=== PATIENT | female | born 1935 | race Caucasian/White ===

== ENCOUNTER 2017-02-25 01:50 | Emergency (ER) | payer OTHER ==
[~2017-02-25] VITALS: Ht 170.2 cm; Wt 101.0 kg
[2017-02-25 01:53] VITALS: TEMP 36.7; Ht 170.2 cm; Wt 101.0 kg
--- NOTE | 2017-02-25 02:28 | EMERGENCY ROOM VISIT NOTE ---
History Report prepared by Diego: Hemanth Herrera Under the Supervision of: Dr. Dusty Jones M.D. First contact with patient: 01:57 Chief Complaint: NEURO SYMPTOMS Stated Complaint: TINGLING DOWN LEFT ARM Nursing Triage Summary: Pt reports tingling sensation from left elbow down the arm to fingers. Onging for 3 weeks. Pt reports it has been happening more frequently now. Pt reports also having nausea tonight. Pt reports she does have pacemaker, denies any chest pain or complaints History of Present Illness The patient is a 81 year old female who presents to the Emergency Room with complaints of left arm tingling that started three weeks ago intermittently, though now it is constant. She states that the tingling goes from her elbow to her fingertips. The patient denies any rashes. She states that she has a pacemaker, though she has never had a heart attack. She states that she had a stress test in the past year, and she states that she did well. She has not had a heart catheterization. Source of History: patient Onset: three weeks ago Position: arm (left) Quality: tingling Timing: constant Associated Symptoms: No rash Review of Systems See HPI for pertinent positives & negatives. A total of 10 systems reviewed and were otherwise negative. Past Medical & Surgical Medical Problems: (1) Pacemaker Family History Cancer Heart disease Hypertension Social History Smoking Status: Never Smoker Marital Status: Housing Status: lives with family Occupation Status: retired Current/Historical Medications Scheduled Esomeprazole Magnesium (Nexium), 20 MG PO QPM Levothyroxine Sodium (Levothyroxine Sodium), 75 MCG PO DAILY Losartan Potassium (Cozaar), 25 MG PO DAILY Metoprolol Tartrate (Lopressor) (Lopressor), 50 MG PO BID Warfarin Sodium (Coumadin), 1 TAB PO 2XWK Warfarin Sodium (Coumadin), 0.5 TAB PO 5XWK Allergies Coded Allergies: No Known Allergies (Unverified , 02/25/17) Physical Exam Vital Signs Date Time Temp Pulse Resp B/P (MAP) Pulse Ox O2 Delivery O2 Flow Rate FiO2 02/25/17 03:55 76 16 144/75 99 02/25/17 02:36 62 19 151/84 96 Room Air 02/25/17 02:05 81 02/25/17 02:05 Room Air 8/12/17 01:53 36.7 78 18 204/106 96 Room Air Physical Exam GENERAL: Patient is a healthy-appearing well-nourished female HEAD: Normocephalic atraumatic EYES: Ocular movements intact pupils equal and react to light OROPHARYNX mucous membranes are moist no exudates present no erythema or edema present NECK: Supple no nuchal rigidity CHEST: Good equal expansion LUNGS: Clear and equal to auscultation CARDIAC: Normal S1 and S2 ABDOMEN: Soft nontender no guarding BACK: No CVA tenderness EXTREMITIES: No pain upon palpation normal muscle strength in all groups no clubbing cyanosis or edema NEURO: Patient is following commands and answering questions appropriately. Alert and oriented x3 Cranial Nerves 2-12 grossly intact Medical Decision & Procedures ER Provider Diagnostic Interpretation: X-ray results as stated below per interpretation by me. One View Chest: No evidence of pneumonia, pneumothorax, or congestion. There in a pacemaker in place. CT results as stated below per my review and radiologist interpretation: CT Head: No acute intracranial abnormality identified. Chronic small vessel ischemic disease and cerebral volume loss. 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 CT C Spine: No acute traumatic abnormality identified. Straightening of the normal cervical lordosis. Multilevel degenerative changes of the cervical spine, most prominent at C5-C6 and C6-C7. Question minimal fat stranding in the left supraclavicular region, partially visualized. Small scattered lymph nodes are likely reactive and not pathologically enlarged. Laboratory Results 02/25/17 02:20 Red Blood Count 5.29, Mean Corpuscular Volume 90.9, Mean Corpuscular Hemoglobin 28.9, Mean Corpuscular Hemoglobin Concent 31.8, Mean Platelet Volume 9.2, Neutrophils (%) (Auto) 74.1, Lymphocytes (%) (Auto) 16.2, Monocytes (%) (Auto) 7.2, Eosinophils (%) (Auto) 2.2, Basophils (%) (Auto) 0.2, Neutrophils # (Auto) 6.25, Lymphocytes # (Auto) 1.37, Monocytes # (Auto) 0.61, Eosinophils # (Auto) 0.19, Basophils # (Auto) 0.02 02/25/17 02:20 Test 02/25/17 02:20 White Blood Count 8.45 K/uL (4.8-10.8) Red Blood Count 5.29 M/uL (4.2-5.4) Hemoglobin 15.3 g/dL (12.0-16.0) Hematocrit 48.1 % (37-47) Mean Corpuscular Volume 90.9 fL (80-100) Mean Corpuscular Hemoglobin 28.9 pg (25-34) Mean Corpuscular Hemoglobin Concent 31.8 g/dl (32-36) Platelet Count 276 K/uL (130-400) Mean Platelet Volume 9.2 fL (7.4-10.4) Neutrophils (%) (Auto) 74.1 % Lymphocytes (%) (Auto) 16.2 % Monocytes (%) (Auto) 7.2 % Eosinophils (%) (Auto) 2.2 % Basophils (%) (Auto) 0.2 % Neutrophils # (Auto) 6.25 K/uL (1.4-6.5) Lymphocytes # (Auto) 1.37 K/uL (1.2-3.4) Monocytes # (Auto) 0.61 K/uL (0.11-0.59) Eosinophils # (Auto) 0.19 K/uL (0-0.5) Basophils # (Auto) 0.02 K/uL (0-0.2) RDW Standard Deviation 46.8 fL (36.4-46.3) RDW Coefficient of Variation 14.0 % (11.5-14.5) Immature Granulocyte % (Auto) 0.1 % Immature Granulocyte # (Auto) 0.01 K/uL (0.00-0.02) Anion Gap 6.0 mmol/L (3-11) Est Creatinine Clear Calc Drug Dose 62.3 ml/min Estimated GFR () 71.9 Estimated GFR (Non- 62.1 BUN/Creatinine Ratio 15.7 (10-20) Calcium Level 8.4 mg/dl (8.5-10.1) Total Bilirubin 0.5 mg/dl (0.2-1) Direct Bilirubin < 0.1 mg/dl (0-0.2) Aspartate Amino Transf (AST/SGOT) 13 U/L (15-37) Alanine Aminotransferase (ALT/SGPT) 22 U/L (12-78) Alkaline Phosphatase 69 U/L (45-117) Total Creatine Kinase 31 U/L (26-192) Creatine Kinase MB 0.5 ng/ml (0.5-3.6) Creatine Kinase MB Ratio 1.6 (0-3.0) Troponin I < 0.015 ng/ml (0-0.045) Total Protein 7.4 gm/dl (6.4-8.2) Albumin 3.5 gm/dl (3.4-5.0) Lipase 199 U/L (73-393) Labs reviewed by ED physician. ECG Indication: other (neuro symptoms) Rate (beats per minute): 84 Rhythm: other (Atrial paced) Findings: no acute ischemic change, paced rhythm, no ectopy ED Course 0157: Past medical records reviewed. The patient was evaluated in room B4. A complete history and physical examination was performed. 0345: Upon reexamination the patient is resting. I discussed results and treatment plan with the patient. She verbalizes agreement and understanding. The patient is ready for discharge. Medical Decision Differential diagnosis: Etiologies such as cardiac ischemia, aortic dissection, pulmonary embolism, pneumonia, pneumothorax, musculoskeletal, infections, pericarditis, myocarditis , esophageal rupture, gastrointestinal, as well as others were entertained. This is an 81-year-old female that presents emergency department complaining of swelling to her left chest area as well as numbness to the left forearm. The patient is concerned it is her heart however she has had 2 negative stress tests in the past year. based on the patient's complaints she was sent for a CAT scan of the head as well as the neck. The neck CAT scan is concerning for soft tissue swelling along with lymph node changes in the area of the left neck. I'm concerned that the patient may need an urgent mammogram. For this reason I referred the patient to case management. In the meanwhile the patient has a normal EKG as well as normal electrolytes including CK-MB and troponin. Based on these findings I feel that the patient can be safely discharged home. Patient and family were in agreement with the treatment plan. Medication Reconcilliation Current Medication List: was personally reviewed by me Blood Pressure Screening Patient's blood pressure: Elevated blood pressure Blood pressure disposition: Referred to PCP Impression Primary Impression: Arm numbness left Scribe Attestation The scribe's documentation has been prepared under my direction and personally reviewed by me in its entirety. I confirm that the note above accurately reflects all work, treatment, procedures, and medical decision making performed by me. Departure Information Dispostion Home / Self-Care Referrals Sobia Gray M.D. (PCP) Forms HOME CARE DOCUMENTATION FORM, IMPORTANT VISIT INFORMATION, WORK / SCHOOL INSTRUCTIONS Patient Instructions My [facility] Additional Instructions Follow up with Breast [facility] and Dr Lance's office (ortho) You were found to have an elevated blood pressure today (>120 sytolic or >90 diastolic). Per medicare guidelines, you need to follow up with this blood pressure screening with your Primary Care Physician (PCP). For a new PCP call [phone]. You have been examined and treated today on an emergency basis only. This is not a substitute for, or an effort to provide, complete comprehensive medical care. It is impossible to recognize and treat all injuries or illnesses in a single emergency department visit. It is therefore important that you follow up closely with Dr Gray. Call as soon as possible for an appointment. Thank you for your time and consideration. I look forward to speaking with you again soon. Please don't hesitate to call us if you have any questions.
[2017-02-25 02:34] LABS: BASO % 0.2 %; BASO ABS # 0.02 K/uL (0-0.2); COMPLETE YES; EOS % 2.2 %; HEMATOCRIT 48.1 % (37-47); IG% 0.1 %; LYMPH % 16.2 %; LYMPH ABS # 1.37 K/uL (1.2-3.4); MEAN CELL VOLUME 90.9 fL (80-100); MEAN CORPUSCULAR HEMOGLOBIN 28.9 pg (25-34); MEAN CORPUSCULAR HGB CONC 31.8 g/dl (32-36); MEAN PLATELET VOLUME 9.2 fL (7.4-10.4); MONO % 7.2 %; NEUT % 74.1 %; PLATELET COUNT 276 K/uL (130-400); RED BLOOD COUNT 5.29 M/uL (4.2-5.4); WHITE BLOOD COUNT 8.45 K/uL (4.8-10.8)
[2017-02-25 03:04] LABS: ALKALINE PHOSPHATASE 69 U/L (45-117); ALT/SGPT 22 U/L (12-78); BLOOD UREA NITROGEN 14 mg/dl (7-18); BUN/CREATININE RATIO 15.7 (10-20); CALCIUM 8.4 mg/dl (8.5-10.1); CARBON DIOXIDE 28 mmol/L (21-32); CHLORIDE 110 mmol/L (98-107); CREATININE 0.88 mg/dl (0.60-1.20); GLUCOSE 106 mg/dl (70-99)
[2017-02-25] MEDS ORDERED: ESOM20CA PO (03:05)
[2017-02-25] MEDS ORDERED: LEVO75TA5 PO (03:05)
[2017-02-25] MEDS ORDERED: LOSA25TA18 PO (03:05)
[2017-02-25] MEDS ORDERED: METO50TA16 PO (03:05)
[2017-02-25] MEDS ORDERED: WARF5TAB90 PO ×2 (03:06)
[2017-02-25 03:09] LABS: POTASSIUM 4.4 mmol/L (3.5-5.1); SODIUM 144 mmol/L (136-145)
[2017-02-25 03:18] LABS: AST/SGOT 13 U/L (15-37); CKMB/CK RATIO 1.6 (0-3.0)
[2017-02-25 03:55] VITALS: BP 144/75; PULSE 76; O2SAT 99
--- NOTE | 2017-02-25 06:32 | DIAGNOSTIC IMAGING REPORT ---
HEAD CT NONCONTRAST CT DOSE: 984.04 mGy.cm HISTORY: Pt c/o left forearm numbness TECHNIQUE: Multiaxial CT images of the head were performed without the use of intravenous contrast. Automated exposure control was utilized for this study. A dose lowering technique was utilized adhering to the principles of ALARA. Comparison: None. Findings: The paranasal sinuses and mastoid air cells are clear. The calvarium and skull base are intact. There is no mass, hematoma, midline shift, acute infarct. White matter hypodensity is nonspecific but suggestive of microvascular ischemic change. The ventricles and sulci demonstrate mild age-related involutional changes. A few punctate calcifications within the periventricular white matter. Impression: No acute intracranial abnormality. Atrophy and microvascular ischemic changes. Electronically signed by: Antonio Fagan M.D. 02/25/2017 6:30 AM Dictated Date/Time: 02/25/2017 6:29 AM
--- NOTE | 2017-02-25 07:25 | DIAGNOSTIC IMAGING REPORT ---
CERVICAL SPINE CT CT DOSE: HISTORY: Headache. Pt c/o left forearm numbness TECHNIQUE: Multiaxial CT images of the cervical spine were performed and reformatted in the sagittal and coronal plane without the use of contrast. A dose lowering technique was utilized adhering to the principles of ALARA. COMPARISON: None. FINDINGS: No fractures. No subluxation. Prevertebral soft tissues and the C1-C2 interval are intact. No pneumothorax. 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 Straightening of the cervical spine. Moderate disc space narrowing with endplate osteophytes at C5-C6 and C6-C7. Moderate left and mild right neural foraminal narrowing at C5-C6. Prominence of the left supraclavicular fat which may demonstrate minimal fat stranding. Subcentimeter cervical lymph nodes do not meet CT criteria for pathologic involvement. IMPRESSION: 1. No fractures within the cervical spine. 2. Multilevel degenerative changes as described above most pronounced at the C5-C6 level where there is moderate left and mild right neural foraminal narrowing. Electronically signed by: Antonio Fagan M.D. 02/25/2017 7:24 AM Dictated Date/Time: 02/25/2017 7:20 AM
--- NOTE | 2017-02-25 07:55 | DIAGNOSTIC IMAGING REPORT ---
CHEST ONE VIEW PORTABLE HISTORY: Atypical CHEST PAIN COMPARISON: None. FINDINGS: The heart is mildly enlarged. Left-sided dual-chamber pacemaker. Low lung volumes. The lungs are clear. No pleural effusions. No pneumothorax. IMPRESSION: Mild cardiomegaly. Electronically signed by: Antonio Fagan M.D. 02/25/2017 7:53 AM Dictated Date/Time: 02/25/2017 7:52 AM
== END 2017-02-25 03:56 | disposition home or self-care (01) ==
LOC: C.EDB 01:51
DX: R20.2 Paresthesia of skin (principal); R22.2 Localized swelling, mass and lump, trunk; Z95.0 Presence of cardiac pacemaker; Z80.9 Family history of malignant neoplasm, unspecified; Z82.49 Family history of ischemic heart disease and other diseases of the circulatory system; Z79.01 Long term (current) use of anticoagulants; Z79.899 Other long term (current) drug therapy

== ENCOUNTER → 2017-03-14 | Outpatient (CLI) | payer OTHER ==
[~2017-03-14] MED LIST: ESOM20CA PO; LEVO75TA5 PO; LOSA25TA18 PO; METO50TA16 PO; WARF5TAB90 PO
--- NOTE | 2017-03-14 16:08 | MAMMOGRAPHY REPORT ---
UNILATERAL LEFT DIGITAL DIAGNOSTIC MAMMOGRAM TOMOSYNTHESIS WITH CAD AND TARGETED LEFT ULTRASOUND: 02/15 CLINICAL HISTORY: 81-year-old woman with a family history of breast cancer = mother and sister, evelyn nts with a complaint of diffuse left breast pain. She also notes recent swelling in the left supracl avicular region that is concerning for lymphadenopathy. TECHNIQUE: Left breast tomosynthesis in addition to standard 2D mammography was performed. Current st udy was also evaluated with a Computer Aided Detection (CAD) system. COMPARISON: Comparison is made to exams dated: 09/03/2014 mammogram, 04/24/2012 mammogram, 04/24/2012 m ammogram, and 09/20/2016 mammogram. BREAST COMPOSITION: There are scattered areas of fibroglandular density in the left breast. FINDINGS: A pacemaker projects over the far superior posterior left breast on the MLO view. Again no mary are multiple circumscribed masses scattered throughout the left breast, stable compared to prior mammograms. This is a typically benign mammographic pattern most likely representing benign fibrocys tic changes/cysts. There are stable benign-appearing calcifications in the left breast. No suspicio us spiculated or irregular mass, architectural distortion or cluster of new, suspicious microcalcific ations is seen. Real-time high-resolution ultrasound was performed in the left axilla and throughout the left breast to ensure the multiple mammographic masses represent cysts. There is no suspicious lymphadenopathy i dentified in the left axilla, only a few morphologically normal lymph nodes within cortices. Through out the left breast, multiple anechoic simple cysts and cyst clusters are identified, compatible with benign fibrocystic changes. No suspicious solid mass was identified. Limited sonographic evaluatio n performed over the area of swelling pointed out by the patient in the left supraclavicular region d emonstrated no definite suspicious lymphadenopathy. However, this area is not well evaluated on ultr asound and definitive evaluation with a contrast-enhanced CT soft tissue neck and/or MRI soft tissue neck is recommended. IMPRESSION: ACR BI-RADS CATEGORY 2: BENIGN, TARGETED ULTRASOUND ACR BI-RADS CATEGORY 2: BENIGN 1. Stable mammographic appearance of the left breast, without mammographic or sonographic evidence o f malignancy. Multiple scattered anechoic cysts and cyst clusters are seen, compatible with benign f ibrocystic change. 2. No suspicious left axillary lymphadenopathy. 3. Indeterminate swelling in the left supraclavicular region for which sonographic evaluation is not optimal. Definitive characterization with a contrast-enhanced CT or MRI soft tissue neck is recomme nded. These results and recommendations were discussed with the patient at the time of the exam. Approximately 10% of breast cancers are not detected with mammography. A negative mammographic report should not delay biopsy if a clinically suggestive mass is present. Trang Ta M.D. ay/:03/14/2017 14:48:50 Residential Sales Consultant: Sweetie ALVARADO(Sasha)([place]), [facility] letter sent: Normal 1/2 BI-RADS Code: ACR BI-RADS Category 2: Benign Ultrasound BI-RADS: ACR BI-RADS Category 2: Benign
== END | disposition home or self-care (01) ==
LOC: C.MAMM 10:21
PROVIDERS: ATTEND Physician Assistant Medical
DX: R59.9 Enlarged lymph nodes, unspecified (principal); R20.0 Anesthesia of skin; R20.2 Paresthesia of skin; N64.4 Mastodynia; N60.09 Solitary cyst of unspecified breast; Z80.3 Family history of malignant neoplasm of breast

== ENCOUNTER 2017-10-14 16:06 | Emergency (ER) | payer OTHER ==
[~2017-10-14] VITALS: Ht 160 cm; Wt 96.9 kg
[2017-10-14 16:14] VITALS: TEMP 36.6; Ht 160 cm; Wt 96.9 kg
[2017-10-14] MEDS ORDERED: GI COCKTAIL PO STA (16:23)
[2017-10-14] MEDS ORDERED: ONDANSETRON INJ 2 MG/ML 2 ML VIAL IV STA (16:23)
[2017-10-14] MEDS ORDERED: FAMOTIDINE 20 MG TAB PO ONE (16:30)
[2017-10-14 16:32] VITALS: O2SAT 97
[2017-10-14] MEDS ORDERED: ALUMINUM/MAGNESIUM SUSP 30 ML UDC ONE (16:34)
[2017-10-14] MEDS ORDERED: LIDOCAINE HCL 2% VISC SOLN 20 ML UDC ONE (16:34)
--- NOTE | 2017-10-14 16:37 | EMERGENCY ROOM VISIT NOTE ---
History Report prepared by Diego: Luci Amos Under the Supervision of: Dr. Lobito Romero M.D. First contact with patient: 16:14 Stated Complaint: CHEST PAIN History of Present Illness The patient is a 81 year old female who presents to the Emergency Room with complaints of intermittent upper abdominal/lower chest pain beginning a couple months ago. The patient reports she decided to come to the ED today because her pain did not reside like it normally does. This episode of chest pain began when the patient woke up this morning. She reports a sharp pain under her left arm as well as tingling in her left hand and nausea. She denies any fever, cough , congestion, shortness of breath, or dizziness. The patient reports she saw her PCP, , for a an episode of dizziness and low blood pressure on . The patient was started on Lasix on . She has not taken her Lasix since yesterday. The patient reports taking Nitroglycerin a couple days for her chest pain. The patient is on Coumadin for atrial fibrillation and a pacemaker. She follows up with Dr. Bernal from Cardiology in [place]. The patient reports a history of a "silent" heart attack and a cholecystectomy. Source of History: patient Onset: a couple months ago Position: chest, abdomen Quality: other (pain) Timing: intermittent Associated Symptoms: + chest pain, + nausea, + abdominal pain, No fevers, No cough, No SOB Review of Systems See HPI for pertinent positives and negatives. A total of ten systems were reviewed and were otherwise negative. Past Medical & Surgical Medical Problems: (1) Pacemaker Family History Cancer Heart disease Hypertension Social History Smoking Status: Never Smoker Marital Status: Housing Status: lives with family Occupation Status: retired Current/Historical Medications Scheduled Levothyroxine Sodium (Levothyroxine Sodium), 75 MCG PO DAILY Losartan Potassium (Losartan Potassium), 50 MG PO DAILY Metoprolol Tartrate (Lopressor) (Lopressor), 50 MG PO BID Ondasetron Odt (Zofran Odt), 4 MG SL Q6H Warfarin Sodium (Coumadin), 2.5 MG PO DAILY Scheduled PRN Esomeprazole Magnesium (Nexium), 20 MG PO QPM PRN for Indigestion Allergies Coded Allergies: No Known Allergies (Unverified , 10/14/17) Physical Exam Vital Signs Date Time Temp Pulse Resp B/P (MAP) Pulse Ox O2 Delivery O2 Flow Rate FiO2 10/14/17 20:09 62 18 174/78 97 10/14/17 19:16 66 18 166/91 97 Room Air 10/14/17 18:30 60 16 146/78 96 Room Air 10/14/17 18:00 60 16 150/68 96 Room Air 10/14/17 17:41 60 10/14/17 17:25 61 16 140/79 96 Room Air 10/14/17 16:32 97 Room Air 10/14/17 16:20 79 10/14/17 16:14 36.6 64 20 173/87 98 Room Air Physical Exam GENERAL: Awake, alert, well-appearing, in no distress HENT: Normocephalic, atraumatic. Oropharynx unremarkable. Dry mucus membranes. EYES: Normal conjunctiva. Sclera non-icteric. NECK: Supple. No nuchal rigidity. FROM. No JVD. RESPIRATORY: Clear to auscultation. CARDIAC: Regular rate, normal rhythm. Extremities warm and well perfused. Pulses equal. ABDOMEN: Mild epigastric discomfort, no peritoneal signs. Soft, non-distended. No rebound or guarding. No masses. RECTAL: Deferred. MUSCULOSKELETAL: Chest examination reveals no tenderness. The back is symmetrical on inspection without obvious abnormality. There is no CVA tenderness to palpation. No joint edema. LOWER EXTREMITIES: Calves are equal size bilaterally and non-tender. No edema. No discoloration. NEURO: Normal sensorium. No sensory or motor deficits noted. SKIN: No rash or jaundice noted. Medical Decision & Procedures ER Provider Diagnostic Interpretation: Radiology results as stated below per my review and radiologist interpretation: SINGLE VIEW CHEST FINDINGS: An AP, portable, upright chest radiograph is compared to study dated 02/25/2017. The examination is degraded by portable technique and apical lordotic positioning. A 2-lead cardiac pacemaker is unchanged in position. The heart is enlarged and there is atherosclerotic calcification of the thoracic aorta. The pulmonary vasculature is noncongested. There are low lung volumes with bibasilar atelectasis. The lungs and pleural spaces are otherwise clear. No pneumothorax is seen. The skeletal structures are osteopenic. The bony thorax is grossly intact. IMPRESSION: 1. Cardiomegaly and cardiac pacemaker. There is no radiographic evidence of congestive failure. 2. Low lung volumes with no airspace consolidation or pleural effusion identified. Electronically signed by: Rik Lofton M.D. Laboratory Results 10/14/17 17:15 Red Blood Count 4.91, Mean Corpuscular Volume 90.4, Mean Corpuscular Hemoglobin 29.9, Mean Corpuscular Hemoglobin Concent 33.1, Mean Platelet Volume 9.5, Neutrophils (%) (Auto) 73.4, Lymphocytes (%) (Auto) 16.8, Monocytes (%) (Auto) 6.9, Eosinophils (%) (Auto) 2.5, Basophils (%) (Auto) 0.3, Neutrophils # (Auto) 5.25, Lymphocytes # (Auto) 1.20, Monocytes # (Auto) 0.49, Eosinophils # (Auto) 0.18, Basophils # (Auto) 0.02 10/14/17 17:14 Test 10/14/17 17:14 10/14/17 17:15 10/14/17 18:52 Prothrombin Time 24.4 SECONDS (9.0-12.0) Prothromb Time International Ratio 2.4 (0.9-1.1) Anion Gap 8.0 mmol/L (3-11) Est Creatinine Clear Calc Drug Dose 49.7 ml/min Estimated GFR () 61.6 Estimated GFR (Non- 53.2 BUN/Creatinine Ratio 14.6 (10-20) Calcium Level 8.1 mg/dl (8.5-10.1) Magnesium Level 2.3 mg/dl (1.8-2.4) Total Bilirubin 0.3 mg/dl (0.2-1) Direct Bilirubin < 0.1 mg/dl (0-0.2) Aspartate Amino Transf (AST/SGOT) 16 U/L (15-37) Alanine Aminotransferase (ALT/SGPT) 20 U/L (12-78) Alkaline Phosphatase 75 U/L (45-117) Pro-B-Type Natriuretic Peptide 186 pg/ml (0-1800) Total Protein 6.9 gm/dl (6.4-8.2) Albumin 3.2 gm/dl (3.4-5.0) Lipase 214 U/L (73-393) White Blood Count 7.15 K/uL (4.8-10.8) Red Blood Count 4.91 M/uL (4.2-5.4) Hemoglobin 14.7 g/dL (12.0-16.0) Hematocrit 44.4 % (37-47) Mean Corpuscular Volume 90.4 fL (80-100) Mean Corpuscular Hemoglobin 29.9 pg (25-34) Mean Corpuscular Hemoglobin Concent 33.1 g/dl (32-36) Platelet Count 237 K/uL (130-400) Mean Platelet Volume 9.5 fL (7.4-10.4) Neutrophils (%) (Auto) 73.4 % Lymphocytes (%) (Auto) 16.8 % Monocytes (%) (Auto) 6.9 % Eosinophils (%) (Auto) 2.5 % Basophils (%) (Auto) 0.3 % Neutrophils # (Auto) 5.25 K/uL (1.4-6.5) Lymphocytes # (Auto) 1.20 K/uL (1.2-3.4) Monocytes # (Auto) 0.49 K/uL (0.11-0.59) Eosinophils # (Auto) 0.18 K/uL (0-0.5) Basophils # (Auto) 0.02 K/uL (0-0.2) RDW Standard Deviation 44.5 fL (36.4-46.3) RDW Coefficient of Variation 13.5 % (11.5-14.5) Immature Granulocyte % (Auto) 0.1 % Immature Granulocyte # (Auto) 0.01 K/uL (0.00-0.02) Troponin I < 0.015 ng/ml (0-0.045) Laboratory results reviewed by me Medications Administered Medications (Trade) Dose Ordered Sig/Josseline Route Start Time Stop Time Status Last Admin Dose Admin Famotidine (Pepcid Tab) 20 mg NOW ONCE PO 10/14/17 16:30 10/14/17 16:31 DC 10/14/17 16:39 20 MG Ondansetron HCl (Zofran Inj) 4 mg NOW STAT IV 10/14/17 16:23 10/14/17 16:27 DC 10/14/17 16:38 4 MG Al Hydroxide/Mg Hydroxide (Maalox Susp) 30 ml STK-MED ONCE .ROUTE 10/14/17 16:34 10/14/17 16:35 DC 3/31/18 16:39 30 ML Lidocaine HCl (Viscous Lidocaine 2% Soln) 20 ml STK-MED ONCE .ROUTE 10/14/17 16:34 10/14/17 16:35 DC 10/14/17 16:39 20 ML ECG Per My Interpretation Indication: chest pain Rate (beats per minute): 85 Rhythm: other (atrial paced) Findings: no acute ischemic change, no ectopy ED Course 1615: The patient was evaluated in room A2. A complete history and physical exam was performed. 1800: I updated the patient on her test results. 2003: I reevaluated the patient. Discussed results and discharge instructions: She verbalized understanding and agreement. The patient is ready for discharge. Medical Decision I reviewed the patient's past medical history, medications, and the nursing notes as described above. Differential diagnosis: Etiologies such as cardiac ischemia, aortic dissection, pulmonary embolism, pneumonia, pneumothorax, musculoskeletal, infections, pericarditis, myocarditis , esophageal rupture, gastrointestinal, as well as others were entertained. The patient is an 81-year-old woman with a past medical history of A. fib on Coumadin status post pacemaker who presents emergency department with intermittent episodes of upper abdominal/lower chest pain with associated nausea for the past month with worse episode this morning per hpi. Rather the patient is in no acute distress, afebrile stable vital signs. She has mild discomfort in the epigastrium without any discrete tenderness. EKG unremarkable negative for acute ischemia. Initial troponin negative in the setting of greater than 6 hours of symptoms. Labs otherwise unremarkable including WBC within normal limits. Chest x-ray negative. Patient feeling resolution of symptoms after Pepcid and GI cocktail suggesting likely gastritis/ reflux. The patient's age and risk factors detla troponin was sent and was again negative. She continue to be symptom-free. The symptoms unlikely to be cardiac. Findings and plan for follow-up reviewed with patient. Patient agreeable and d/c'd per discharge instructions. Medication Reconcilliation Current Medication List: was personally reviewed by me Blood Pressure Screening Patient's blood pressure: Elevated blood pressure Blood pressure disposition: Elevated BP felt to be situational Impression Primary Impression: Gastritis Additional Impression: Chest pain Scribe Attestation The scribe's documentation has been prepared under my direction and personally reviewed by me in its entirety. I confirm that the note above accurately reflects all work, treatment, procedures, and medical decision making performed by me. Departure Information Dispostion Home / Self-Care Prescriptions Ondasetron Odt (ZOFRAN ODT) 4 Mg Tab 4 MG SL Q6H for Nausea, #10 TAB Prov: Lobito Romero M.D. 10/14/17 Referrals Sobia Gray M.D. (PCP) Forms Call Back Authorization, HOME CARE DOCUMENTATION FORM, IMPORTANT VISIT INFORMATION Patient Instructions ED Chest Pain Atypical Unkn Cause, ED Gastritis, [facility] Additional Instructions Please follow up with your primary care physician in the next 1-3 days for re- evaluation. Your symptoms most likely due to a gastritis/reflux. Otherwise, your exam, EKG, chest xray, and lab results did not show signs of an emergent condition at this time. Resume your home Nexium. Zofran as needed for nausea. Drink plenty of fluids to ensure hydration. Return to the emergency department for worsening symptoms as described in the accompanying instructions. Problem Qualifiers
[2017-10-14] MEDS ORDERED: CZR50 PO (16:42)
--- NOTE | 2017-10-14 17:00 | DIAGNOSTIC IMAGING REPORT ---
SINGLE VIEW CHEST CLINICAL HISTORY: Atypical chest pain. FINDINGS: An AP, portable, upright chest radiograph is compared to study dated 02/25/2017. The examination is degraded by portable technique and apical lordotic positioning. A 2-lead cardiac pacemaker is unchanged in position. The heart is enlarged and there is atherosclerotic calcification of the thoracic aorta. The pulmonary vasculature is noncongested. There are low lung volumes with bibasilar atelectasis. The lungs and pleural spaces are otherwise clear. No pneumothorax is seen. The skeletal structures are osteopenic. The bony thorax is grossly intact. IMPRESSION: 1. Cardiomegaly and cardiac pacemaker. There is no radiographic evidence of congestive failure. 2. Low lung volumes with no airspace consolidation or pleural effusion identified. Electronically signed by: Rik Lofton M.D. 10/14/2017 4:59 PM Dictated Date/Time: 10/14/2017 4:58 PM
[2017-10-14 17:30] LABS: BASO % 0.3 %; BASO ABS # 0.02 K/uL (0-0.2); EOS % 2.5 %; EOS ABS # 0.18 K/uL (0-0.5); HEMATOCRIT 44.4 % (37-47); HEMOGLOBIN 14.7 g/dL (12.0-16.0); IG# 0.01 K/uL (0.00-0.02); LYMPH % 16.8 %; MEAN CELL VOLUME 90.4 fL (80-100); MEAN CORPUSCULAR HEMOGLOBIN 29.9 pg (25-34); MEAN CORPUSCULAR HGB CONC 33.1 g/dl (32-36); MEAN PLATELET VOLUME 9.5 fL (7.4-10.4); MONO % 6.9 %; MONO ABS # 0.49 K/uL (0.11-0.59); NEUT % 73.4 %; NEUT ABS # 5.25 K/uL (1.4-6.5); PLATELET COUNT 237 K/uL (130-400); RED CELL DISTRIBUTION WIDTH CV 13.5 % (11.5-14.5); RED CELL DISTRIBUTION WIDTH SD 44.5 fL (36.4-46.3); WHITE BLOOD COUNT 7.15 K/uL (4.8-10.8)
[2017-10-14 17:44] LABS: INR 2.4 (0.9-1.1)
[2017-10-14 17:49] LABS: ALBUMIN 3.2 gm/dl (3.4-5.0); ALT/SGPT 20 U/L (12-78); AST/SGOT 16 U/L (15-37); BLOOD UREA NITROGEN 15 mg/dl (7-18); CALCIUM 8.1 mg/dl (8.5-10.1); CARBON DIOXIDE 27 mmol/L (21-32); GLUCOSE 118 mg/dl (70-99); LIPASE 214 U/L (73-393); POTASSIUM 3.8 mmol/L (3.5-5.1); SODIUM 141 mmol/L (136-145)
[2017-10-14 17:55] LABS: ALKALINE PHOSPHATASE 75 U/L (45-117); TOTAL PROTEIN 6.9 gm/dl (6.4-8.2)
[2017-10-14] MEDS ORDERED: ONDA4TAB10 SL (19:02)
[2017-10-14 20:09] VITALS: BP 174/78; PULSE 62; O2SAT 97
== END 2017-10-14 20:09 | disposition home or self-care (01) ==
LOC: EDBD 16:06 → C.EDA 16:08
DX: K29.70 Gastritis, unspecified, without bleeding (principal); R07.89 Other chest pain; R03.0 Elevated blood-pressure reading, without diagnosis of hypertension; R20.2 Paresthesia of skin; I25.2 Old myocardial infarction; I48.91 Unspecified atrial fibrillation; Z95.0 Presence of cardiac pacemaker; Z90.49 Acquired absence of other specified parts of digestive tract; Z79.01 Long term (current) use of anticoagulants; Z82.49 Family history of ischemic heart disease and other diseases of the circulatory system

== ENCOUNTER 2023-01-22 17:43 | Inpatient (IN) ==
--- NOTE | 2023-01-22 18:21 | Emergency Department Note ---
Impression & Plan Ankle fracture, Wound disruption ED Provider Note NAME: LORIN WHITE AGE: 87 SEX: F : 1935 ARRIVES VIA: Ambulance INFORMANT: Patient ED PROVIDER(S): Virgil Alvarez DO CHIEF COMPLAINT: right leg pain HPI: Patient is an 87-year-old female who presents ER for right leg pain. She has a known fracture of the right ankle. This occurred on 17 January. She was seen by orthopedics in follow-up and splint was removed and per patient was never replaced. She did have a blood blister that was opened up. She has been placing Silvadene over top. She denies any headache or change in vision. No chest pain or shortness of breath. No nausea vomiting or diarrhea. No fevers. No other exacerbating or remitting factors. PAST MEDICAL HISTORY:See Below PAST SURGICAL HISTORY:See Below FAMILY HISTORY:See Below SOCIAL HISTORY:See Below HOME MEDICATIONS:See Below ALLERGIES:See Below VITALS:See Below PHYSICAL EXAMINATION: GENERAL: Sitting up in bed, alert, well appearing, well nourished, no distress, non-toxic EYE EXAM: normal conjunctiva. OROPHARYNX:mucous membranes are moist LUNGS: Clear to auscultation. Normal chest wall mechanics HEART: no murmurs, S1 normal and S2 normal ABDOMEN: abdomen soft, non-tender, normo-active bowel sounds, no masses, no rebound or guarding. BACK: Back is symmetrical on inspection and there is no deformity, no midline tenderness, no CVA tenderness. UPPER EXTREMITIES: upper extremities are grossly normal. LOWER EXTREMITIES: Flexion-extension right hip and knee intact. Right ankle with obvious deformity with foot deviated laterally and open wound over the left ankle which measures 6 x 6. Bruising and swelling circumferentially with pressure over the medial malleolus likely secondary to the angulation of the foot laterally. No overlying cellulitis. NEURO EXAM: Normal sensorium, cranial nerves II-XII grossly intact, normal speech, no gross weakness of arms, no gross weakness of legs. MEDICAL DECISION MAKING: Patient is an 87-year-old female who presents ER for above-stated complaint. IV was established blood work is obtained. External records reviewed. Labs show no significant leukocytosis or anemia. BMP with LFTs bilirubin was unremarkable. COVID was negative. X-ray of the ankle shows a fracture with subluxation of the joint. Upon presentation patient is wearing no splint, cast or boot. Family notes that she has been intermittently putting weight on the ankle. There is an obvious deformity DPs intact. She has a little large wound about 6 cm x 6 cm over the medial malleolus. Consulted orthopedics who did evaluate the patient. They were agreeable with placing patient on Keflex Xeroform gauze and wrapping it and only placing her in a posterior splint. They did recommend some gentle traction while the patient was resplinted to see if we could get her in better alignment. I did attempt this and there was some subtle improvement but was difficult to maintain as we did not place her in a saddle as Ortho wanted to hold off due to the wound.. Patient was given 50 fentanyl. Following this I did discuss with family and they note that they cannot take care of her any longer at home. They are unable to keep her nonweightbearing as when she gets into the bathroom she has to put weight on the foot because they cannot support her. He is she is not able to really get around. Following this I discussed the case with Dr. Blunt approved for admission and further placement. Triage Nursing notes reviewed. Limited review of prior medical records performed Vital Signs: reviewed and remarkable for no significant abnormalities Differential diagnosis: Fracture, subluxation, dislocation, contusion, ligamentous injury, neurovascular, compartment syndrome, rhabdomyolysis, as well as other pathologies. ER treatment provided: See below Diagnostics interpreted by me include EKG and cardiac monitoring as listed below: -Cardiac Monitoring: An order was placed for continuous cardiac monitoring. The monitor shows a rate of 60 with sinus rhythm. -ECG: none -Laboratory studies:Interpreted by me as stated above in MDM and shown below. Imaging studies: Xrays: As interpreted by me: X-ray of the right ankle with a bimalleolar fracture and apparent dislocation Repeat x-rays shows improvement the tibiotalar joint but the talus is angulated laterally CTs show: none Consultation(s): Discussed with orthopedics Dr. Pablo Collins who was gracious enough to evaluate the patient briefly at bedside and recommended splinting antibiotics as well as Xeroform gauze and wrapping the patient's leg and placed him in a posterior for some support. Stressed the importance of non weightbearing. Procedures: Right ankle fracture dislocation Verbal consent was obtained. Patient was neurovascularly intact prior to the procedure. Did place gentle inline traction on the ankle and tried to relocate it within the tibial talar joint. Attempted to also obtain stability medially and laterally unsuccessfully as the posterior splint would not hold her securely in that position. Patient tolerated the procedure well. Neurovascular intact following this. Repeat x-rays do show some improvement. Critical Care: None Past Med/Surg History Medical History (Updated 01/22/23 @ 22:23 by Virgil Alvarez DO) Hypertension Paroxysmal atrial fibrillation Surgical History (Updated 08/15/19 @ 13:57 by Jody Parsons) History of cardiac pacemaker History of cholecystectomy History of colonoscopy Family History (Updated 08/15/19 @ 13:57 by Jody Parsons) Mother Hypertension Breast cancer Other No family history of bleeding disorder Social History (Updated 08/15/19 @ 13:58 by Jody Parsons) Smoking Status: Never smoker Second Hand Exposure: No; Hx Alcohol Use: No Hx Substance Use: No Feels Safe at Home: Yes Allergies Allergies Allergy/AdvReac Type Severity Reaction Status Date / Time aspirin AdvReac Intermediate Vomiting Verified 01/22/23 19:19 morphine AdvReac Intermediate Vomiting Verified 01/22/23 19:19 Home Meds Home Medications Medication Instructions Recorded Confirmed hydrochlorothiazide 12.5 mg capsule 12.5 mg PO DAILY 04/30/19 01/22/23 nitroglycerin 0.4 mg sublingual 0.4 mg sublingual Q5M PRN chest 04/30/19 01/22/23 tablet pain warfarin 5 mg tablet See Rx Instructions .Route .COMPLEX 04/30/19 01/22/23 levothyroxine 100 mcg tablet 100 mcg PO DAILY 12/30/19 01/22/23 esomeprazole magnesium 20 mg 20 mg PO DAILY 04/13/20 01/22/23 capsule,delayed release (Nexium) fexofenadine 180 mg tablet 90 mg PO DAILY PRN Congestion 10/09/20 01/22/23 Previous Rx's Medication Instructions Recorded silver sulfadiazine 1 % topical 1 applic topical BID #50 grams 01/20/23 cream tramadol 50 mg tablet 50 mg PO Q6H PRN pain #30 tabs 01/20/23 Results & Data (ED) Vital Signs Vital Signs - 24 hr 01/22/23 17:56 01/22/23 18:02 01/22/23 20:58 Temperature 36.8 C Temperature Source Oral Pulse Rate 60 60 Pulse Rate [Apical] 60 Pulse Rhythm Regular Pulse Rhythm [Apical] Pulse Strength [Apical] Respiratory Rate 18 20 17 Respiratory Effort / Characteristics Non-Labored Non-Labored Respiratory Depth Normal Normal Blood Pressure 129/62 Blood Pressure [Right Arm] 129/62 Blood Pressure Mean 84 Blood Pressure Mean [Right Arm] 84 Blood Pressure Position [Right Arm] Pulse Oximetry 95 95 91 Oxygen Delivery Method Room Air Room Air Room Air Sepsis Recent Fever Within 48 Hours No Sepsis New/Unexplained Change in Mental Status No Sepsis Action Taken by Nursing No Action Required 01/22/23 20:58 01/22/23 22:00 Temperature Temperature Source Pulse Rate Pulse Rate [Apical] 60 61 Pulse Rhythm Pulse Rhythm [Apical] Regular Pulse Strength [Apical] Normal Respiratory Rate 19 17 Respiratory Effort / Characteristics Non-Labored Spontaneous Non-Labored Spontaneous Respiratory Depth Normal Normal Blood Pressure Blood Pressure [Right Arm] 117/66 127/65 Blood Pressure Mean Blood Pressure Mean [Right Arm] 83 85 Blood Pressure Position [Right Arm] Lying Pulse Oximetry 91 94 Oxygen Delivery Method Room Air Room Air Sepsis Recent Fever Within 48 Hours Sepsis New/Unexplained Change in Mental Status Sepsis Action Taken by Nursing Laboratory Data 01/22/23 17:56 01/22/23 17:56 Lab Results 01/22/23 01/22/23 01/22/23 Range/Units 17:56 17:56 20:56 WBC 10.12 (4.8-10.8) K/ul RBC 4.98 (4.20-5.40) M/uL Hgb 14.4 (12.0-16.0) g/dl Hct 44.3 (37.0-47.0) % MCV 89.0 (80.0-100.0) fL MCH 28.9 (25.0-34.0) pg MCHC 32.5 (32.0-36.0) g/dL RDW Std Deviation 44.8 (36.4-46.3) fL RDW Coeff of Omar 13.8 (11.5-14.5) % Plt Count 296 (130-400) K/uL MPV 9.6 (9.4-12.4) fL Immature Gran % (Auto) 0.2 % Neut % (Auto) 74.5 % Lymph % (Auto) 13.2 % [place] % (Auto) 9.9 % Eos % (Auto) 1.8 % Baso % (Auto) 0.4 % Neut # (Auto) 7.54 H (1.40-6.50) K/uL Lymph # (Auto) 1.34 (1.2-3.4) K/uL [place] # (Auto) 1.00 H (0.11-0.59) K/uL Eos # (Auto) 0.18 (0-0.50) K/uL Baso # (Auto) 0.04 (0-0.2) K/uL Immature Gran # (Auto) 0.02 (0.01-0.20) K/uL Sodium 140 (136-145) mmol/L Potassium 3.7 (3.5-5.1) mmol/L Chloride 101 (98-107) mmol/L Carbon Dioxide 33 H (21-32) mmol/L Anion Gap 6 (3-11) BUN 20 (6-23) mg/dl Creatinine 1.21 H (0.6-1.2) mg/dl Est Cr Clr Drug Dosing 44.8 ml/min Est GFR ( Amer) 46.9 ml/min Est GFR (Non-Af Amer) 40.5 ml/min BUN/Creatinine Ratio 16.5 (10-20) Glucose 104 H (70-99(Fasting)) mg/dl Calcium 8.7 (8.6-10.3) mg/dl Total Bilirubin 0.8 (0.2-1.0) mg/dl AST 12 L (13-39) U/L ALT 10 (7-52) U/L Alkaline Phosphatase 72 (34-104) U/L Total Protein 6.7 (6.0-8.3) gm/dl Albumin 3.7 (3.4-5.0) gm/dl Globulin 3.0 (2.5-4.0) gm/dl Albumin/Globulin Ratio 1.2 (0.9-2) SARS-CoV-2, RNA, NAAT NEGATIVE (NEGATIVE) Administered Medications Discontinued Medications Fentanyl Citrate (Fentanyl Citrate Pf 100 Mcg/2 Ml Vial) 50 mcg IV NOW STA Stop: 01/22/23 20:09 Last Admin: 01/22/23 20:11 Dose: 50 mcg Documented By: AMS Fentanyl Citrate (Fentanyl Citrate Pf 100 Mcg/2 Ml Vial) Confirm Administered Dose 100 mcg .ROUTE .STK-MED ONE Stop: 01/22/23 20:10 Last Admin: 01/22/23 21:31 Dose: Not Given Documented By: DYLON Ceftriaxone Sodium (Rocephin) 2,000 mg in 70 mls @ 140 mls/hr IV NOW STA Stop: 01/22/23 18:55 Last Infusion: 01/22/23 20:15 Dose: 0 mls/hr Documented By: Admin: 01/22/23 19:05 Dose: 140 mls/hr Documented By: DYLON Ondansetron HCl (Ondansetron Inj 2 Mg/Ml 2 Ml Vial) Confirm Administered Dose 4 mg .ROUTE .STK-MED ONE Stop: 01/22/23 20:26 Last Admin: 01/22/23 20:29 Dose: 4 mg Documented By: DYLON Imaging Data Radiologist's Impression: Ankle X-Ray 01/22/23 18:18 XR ankle RT 2V HISTORY: 87 years-old Female r ankle fx acute pain of the right ankle COMPARISON: Right ankle radiographs 01/20/2023 TECHNIQUE: 2 views of the right ankle FINDINGS: Acute bimalleolar right ankle fracture is again noted with progressive displ acement involving both the medial malleolus malleolar fractures. Interval development of tibiotalar subluxation with apex medial angulation of the tibiotalar joint. The tibial plafond is displaced 1.8 cm volar to the talus. Arterial calcifications. Moderate soft tissue swelling of the foot and ankle with ankle joint effusion. IMPRESSION: 1. Acute bimalleolar right ankle fracture redemonstrated with progressively worsening displacement compared to the 01/20/2023 exam. 2. Interval development of tibiotalar subluxation with progressively worsening soft tissue swelling and joint effusion. ACT 112: Negative or not required by law. The above report was generated using voice recognition software. It may contain grammatical, syntax or spelling errors. Electronically signed by: Pedro Franz M.D. 01/22/2023 7:25 PM Discharge Plan Visit Data Chief Complaint: Wound Stated Complaint: BLOOD BLISTER NOT HEALING ED Provider: Virgil Alvarez Discharge Problem: Ankle fracture, Wound disruption Forms Stand Alone Forms: [facility] [employer] Prescriptions Prescriptions: No Action levothyroxine 100 mcg tablet 100 mcg PO DAILY fexofenadine 180 mg tablet 90 mg PO DAILY PRN (Reason: Congestion) esomeprazole magnesium [Nexium] 20 mg capsule,delayed release(DR/EC) 20 mg PO DAILY silver sulfadiazine 1 % cream 1 applic topical BID Qty: 50 0RF Rx Instructions: apply a 1.5 mm thickness tramadol 50 mg tablet 50 mg PO Q6H PRN (Reason: pain) Qty: 30 0RF nitroglycerin 0.4 mg tablet, sublingual 0.4 mg SL Q5M PRN (Reason: chest pain) hydrochlorothiazide 12.5 mg capsule 12.5 mg PO DAILY warfarin 5 mg tablet See Rx Instructions .ROUTE .COMPLEX Rx Instructions: TAKES 5 MG ON MONDAYS ONLY, THEN 2.5 MG ON ALL OTHER DAYS. Referrals Referrals: Sobia Gray MD [Primary Care Provider] -
[2023-01-22] MEDS ORDERED: cefTRIAXone SODIUM 2,000 MG/70 ML BAG IV STA (18:26)
[2023-01-22 18:40] LABS: Basophils # (auto) 0.04 K/uL (0-0.2); Basophils % (auto) 0.4 %; Eosinophils # (auto) 0.18 K/uL (0-0.50); Eosinophils % (auto) 1.8 %; Hematocrit (blood only) 44.3 % (37.0-47.0); Hemoglobin 14.4 g/dl (12.0-16.0); Immature Granulocytes # (auto) 0.02 K/uL (0.01-0.20); Immature Granulocytes % (auto) 0.2 %; Lymphocytes # (auto) 1.34 K/uL (1.2-3.4); Lymphocytes % (auto) 13.2 %; Mean Corpuscular Hemoglobin 28.9 pg (25.0-34.0); Mean Corpuscular Hgb Conc 32.5 g/dL (32.0-36.0); Mean Platelet Volume 9.6 fL (9.4-12.4); Monocytes % (auto) 9.9 %; Neutrophils # (auto) 7.54 K/uL (1.40-6.50); Neutrophils % (auto) 74.5 %; Platelet Count 296 K/uL (130-400); RDW Coefficient of Variation 13.8 % (11.5-14.5); RDW Standard Deviation 44.8 fL (36.4-46.3); Red Blood Count 4.98 M/uL (4.20-5.40); White Blood Count 10.12 K/ul (4.8-10.8)
[2023-01-22 18:56] LABS: Albumin Globulin Ratio 1.2 (0.9-2); Albumin Level 3.7 gm/dl (3.4-5.0); BUN Creatinine Ratio 16.5 (10-20); Bilirubin,Total 0.8 mg/dl (0.2-1.0); Calcium 8.7 mg/dl (8.6-10.3); Creatinine Clr Calc Pharmacy 44.8 ml/min; Est GFR (African American) 46.9 ml/min; Est GFR (Non-African American) 40.5 ml/min; Potassium 3.7 mmol/L (3.5-5.1); Total Protein 6.7 gm/dl (6.0-8.3)
--- NOTE | 2023-01-22 19:27 | XRay Report ---
XR ankle RT 2V HISTORY: 87 years-old Female r ankle fx acute pain of the right ankle COMPARISON: Right ankle radiographs 01/20/2023 TECHNIQUE: 2 views of the right ankle FINDINGS: Acute bimalleolar right ankle fracture is again noted with progressive displacement involving both th e medial malleolus malleolar fractures. Interval development of tibiotalar subluxation with apex medi al angulation of the tibiotalar joint. The tibial plafond is displaced 1.8 cm volar to the talus. Art erial calcifications. Moderate soft tissue swelling of the foot and ankle with ankle joint effusion. IMPRESSION: 1. Acute bimalleolar right ankle fracture redemonstrated with progressively worsening displacement co mpared to the 01/20/2023 exam. 2. Interval development of tibiotalar subluxation with progressively worsening soft tissue swelling a nd joint effusion. ACT 112: Negative or not required by law. The above report was generated using voice recognition software. It may contain grammatical, syntax o r spelling errors. Electronically signed by: Pedro Franz M.D. 01/22/2023 7:25 PM
[2023-01-22] MEDS ORDERED: fentaNYL citrate PF 100 MCG/2 ML VIAL IV STA (20:08)
[2023-01-22] MEDS ORDERED: fentaNYL citrate PF 100 MCG/2 ML VIAL ONE (20:09)
[2023-01-22] MEDS ORDERED: ONDANSETRON INJ 2 MG/ML 2 ML VIAL ONE (20:25)
--- NOTE | 2023-01-22 22:32 | History & Physical Report ---
Date of Service January 22, 2023 Assessment & Plan (1) Ankle fracture: Plan: 87-year-old female presents with fall on January 17 with right ankle fracture followed with orthopedics outpatient and has a follow-up appointment, because of increasing redness and warmth at the fracture site. Right ankle fracture S/p mechanical fall on January 17 Worsening fracture on the imaging studies today Possible infection Rocephin given in the ER which will be continued and was wrapped. We will consult orthopedics PT OT We will monitor in the hospital. Prediabetes We will follow HbA1c levels. Paroxysmal atrial fibrillation Tachybradycardia syndrome S/p pacemaker On Coumadin. Will follow PT/INR Hypothyroidism On Synthyroid. Hypertension On hydrochlorothiazide. GERD On omeprazole. DVT prophylaxis On Coumadin. Will follow PT/INR. Disposition We will monitor on medical floor Home PT versus placement. History of Present Illness Chief Complaint: S/p fall and right ankle fracture. Primary Care Provider: Sobia Gray MD This is a 87-year-old female with past medical significant for hypothyroidism prediabetes hyperlipidemia, paroxysmal atrial fibrillation, tachybradycardia syndrome, complete heart block, s/p AV mayra ablation, s/p dual chamber pacemaker, hypertension, chronic diastolic CHF, chronic kidney disease stage III, generalized osteoarthritis, left breast cancer, history of depression, who lives at home alone and daughter lives close by s/p fall on DecemberJanuary 17 and had a right ankle fracture. Saw orthopedics as outpatient when she a lot of blisters which were popped and advised for dressing and a follow-up appointment on next Monday. But the family noticed the ankle getting more warm and red and was worried about infection and came to ER today. In the ER imaging studies showed worsening fracture and was wrapped and antibiotics was given. Patient says whenever he puts weight on the leg she has a lot of pain. Denies any fevers. Currently resting comfortably and hemodynamically stable. Denies any headache, no dizziness, no blurred visions, no earaches, no runny nose, no sore throat, no cough, no difficulty swallowing. Appetite is good. Not sleeping well because of pain. Denies any chest pain or shortness of breath. No nausea or vomitings. No abdominal pain. Normal bowel and bladder movements. Patient has some rash in her groin region. Past medical history as mentioned above. Past surgical history cardiac ablation AV junction, colonoscopy, pacemaker implant, laparoscopic cholecystectomy, left partial mastectomy, bilateral cataract surgery. Allergies Allergy/AdvReac Type Severity Reaction Status Date / Time aspirin AdvReac Intermediate Vomiting Verified 01/22/23 19:19 morphine AdvReac Intermediate Vomiting Verified 01/22/23 19:19 Home Medications Medication Instructions Recorded Confirmed Type hydrochlorothiazide 12.5 mg capsule 12.5 mg PO DAILY 04/30/19 01/22/23 History nitroglycerin 0.4 mg sublingual 0.4 mg sublingual Q5M PRN chest 04/30/19 01/22/23 History tablet pain warfarin 5 mg tablet See Rx Instructions .Route .COMPLEX 04/30/19 01/22/23 History levothyroxine 100 mcg tablet 100 mcg PO DAILY 12/30/19 01/22/23 History esomeprazole magnesium 20 mg 20 mg PO DAILY 04/13/20 01/22/23 History capsule,delayed release (Nexium) fexofenadine 180 mg tablet 90 mg PO DAILY PRN Congestion 10/09/20 01/22/23 History silver sulfadiazine 1 % topical 1 applic topical BID #50 grams 01/20/23 01/22/23 Rx cream tramadol 50 mg tablet 50 mg PO Q6H PRN pain #30 tabs 01/20/23 01/22/23 Rx Past Med/Surg History Medical History (Updated 01/22/23 @ 22:23 by Virgil Alvarez DO) Hypertension Paroxysmal atrial fibrillation Surgical History (Updated 08/15/19 @ 13:57 by Jody Parsons) History of cardiac pacemaker History of cholecystectomy History of colonoscopy Family History Mother Hypertension Breast cancer Other No family history of bleeding disorder Social History (Updated 08/15/19 @ 13:58 by Jody Parsons) Smoking Status: Never smoker Second Hand Exposure: No; Hx Alcohol Use: No Hx Substance Use: No Feels Safe at Home: Yes Review of Systems Review of Systems: All systems reviewed & are unremarkable except as noted in Subjective Physical Exam Physical Exam: NEEDS EDITING General- adult Head- atraumatic Eyes- PERRL, ENT- oropharynx clear Neck- supple, no JVD, ; carotids +2/2, no bruits appreciated Lungs- clear to auscultation and percussion Heart- regular rhythm; no murmur, no gallop, no rub appreciated Abdomen- normal bowel sounds, soft, nontender, no masses or hepatosplenomegaly Extremities- no pretibial edema, right lower extremity wrapped in dressing Neuro- alert, oriented x 3; PERRL, no facial palsy; no dysarthria;non focal Skin- warm & dry Results & Data Results & Data Vital Signs (Past 12 Hours) Vital Signs Temp Pulse Pulse Resp BP BP Pulse Ox 01/22/23 22:00 61 17 127/65 94 01/22/23 20:58 60 19 117/66 91 01/22/23 20:58 60 17 91 01/22/23 18:02 60 20 129/62 95 01/22/23 17:56 36.8 C 60 18 129/62 95 O2 Del Method 01/22/23 22:00 Room Air 01/22/23 20:58 Room Air 01/22/23 20:58 Room Air 01/22/23 18:02 Room Air 01/22/23 17:56 Room Air Diagnostic Findings Laboratory Results WBC 10.12 K/ul (4.8-10.8) 01/22/23 17:56 RBC 4.98 M/uL (4.20-5.40) 01/22/23 17:56 Hgb 14.4 g/dl (12.0-16.0) 01/22/23 17:56 Hct 44.3 % (37.0-47.0) 01/22/23 17:56 MCV 89.0 fL (80.0-100.0) 01/22/23 17:56 MCH 28.9 pg (25.0-34.0) 01/22/23 17:56 MCHC 32.5 g/dL (32.0-36.0) 01/22/23 17:56 RDW Std Deviation 44.8 fL (36.4-46.3) 01/22/23 17:56 RDW Coeff of Omar 13.8 % (11.5-14.5) 01/22/23 17:56 Plt Count 296 K/uL (130-400) 01/22/23 17:56 MPV 9.6 fL (9.4-12.4) 01/22/23 17:56 Immature Gran % (Auto) 0.2 % 01/22/23 17:56 Neut % (Auto) 74.5 % 01/22/23 17:56 Lymph % (Auto) 13.2 % 01/22/23 17:56 [place] % (Auto) 9.9 % 01/22/23 17:56 Eos % (Auto) 1.8 % 01/22/23 17:56 Baso % (Auto) 0.4 % 01/22/23 17:56 Neut # (Auto) 7.54 K/uL (1.40-6.50) H 01/22/23 17:56 Lymph # (Auto) 1.34 K/uL (1.2-3.4) 01/22/23 17:56 [place] # (Auto) 1.00 K/uL (0.11-0.59) H 01/22/23 17:56 Eos # (Auto) 0.18 K/uL (0-0.50) 01/22/23 17:56 Baso # (Auto) 0.04 K/uL (0-0.2) 01/22/23 17:56 Immature Gran # (Auto) 0.02 K/uL (0.01-0.20) 01/22/23 17:56 Sodium 140 mmol/L (136-145) 01/22/23 17:56 Potassium 3.7 mmol/L (3.5-5.1) 01/22/23 17:56 Chloride 101 mmol/L (98-107) 01/22/23 17:56 Carbon Dioxide 33 mmol/L (21-32) H 01/22/23 17:56 Anion Gap 6 (3-11) 01/22/23 17:56 BUN 20 mg/dl (6-23) 01/22/23 17:56 Creatinine 1.21 mg/dl (0.6-1.2) H 01/22/23 17:56 Est Cr Clr Drug Dosing 44.8 ml/min 01/22/23 17:56 Est GFR ( Amer) 46.9 ml/min 01/22/23 17:56 Est GFR (Non-Af Amer) 40.5 ml/min 01/22/23 17:56 BUN/Creatinine Ratio 16.5 (10-20) 01/22/23 17:56 Glucose 104 mg/dl (70-99(Fasting)) H 01/22/23 17:56 Calcium 8.7 mg/dl (8.6-10.3) 01/22/23 17:56 Total Bilirubin 0.8 mg/dl (0.2-1.0) 01/22/23 17:56 AST 12 U/L (13-39) L 01/22/23 17:56 ALT 10 U/L (7-52) 01/22/23 17:56 Alkaline Phosphatase 72 U/L (34-104) 01/22/23 17:56 Total Protein 6.7 gm/dl (6.0-8.3) 01/22/23 17:56 Albumin 3.7 gm/dl (3.4-5.0) 01/22/23 17:56 Globulin 3.0 gm/dl (2.5-4.0) 01/22/23 17:56 Albumin/Globulin Ratio 1.2 (0.9-2) 01/22/23 17:56 SARS-CoV-2, RNA, NAAT NEGATIVE (NEGATIVE) 01/22/23 20:56 Code Status & VTE Plan VTE Prophylaxis Plan VTE Prophylaxis will be ordered: Yes
[2023-01-22] MEDS ORDERED: NITROGLYCERIN SL 0.4 MG/TAB TAB SL PRN (23:54)
[2023-01-22] MEDS ORDERED: HYDROmorphone INJ 0.5 MG/0.5 ML SYR IV PRN (23:54)
[2023-01-22] MEDS ORDERED: POLYETHYLENE (MIRALAX) 17 GM PACK PO PRN (23:54)
[2023-01-22] MEDS ORDERED: SODIUM CHLORIDE 0.9% 1000ML 1,000 ML IV SCH (23:54)
[2023-01-22] MEDS ORDERED: FEXOFENADINE HCL 180 MG TAB PO PRN (23:54)
[2023-01-23] MEDS: ACETAMINOPHEN 325 MG TAB PO PRN ×3 (00:22→08:14)
[2023-01-23] MEDS: traMADol HCL 50 MG TABLET PO PRN ×2 (00:22→06:03)
[2023-01-23] MEDS: NYSTATIN OINT 15 GM TUBE EXT SCH ×2 (06:04→21:00)
[2023-01-23] MEDS: LEVOTHYROXINE SODIUM 100 MCG TABLET PO SCH (06:04)
[2023-01-23 06:10] LABS: Basophils # (auto) 0.03 K/uL (0-0.2); Basophils % (auto) 0.4 %; Eosinophils # (auto) 0.24 K/uL (0-0.50); Hematocrit (blood only) 39.6 % (37.0-47.0); Immature Granulocytes # (auto) 0.02 K/uL (0.01-0.20); Immature Granulocytes % (auto) 0.3 %; Lymphocytes % (auto) 17.5 %; Mean Corpuscular Hemoglobin 28.4 pg (25.0-34.0); Mean Corpuscular Hgb Conc 32.8 g/dL (32.0-36.0); Mean Corpuscular Volume 86.7 fL (80.0-100.0); Mean Platelet Volume 9.5 fL (9.4-12.4); Monocytes # (auto) 0.84 K/uL (0.11-0.59); Monocytes % (auto) 10.5 %; Neutrophils # (auto) 5.45 K/uL (1.40-6.50); Neutrophils % (auto) 68.3 %; Platelet Count 269 K/uL (130-400); RDW Standard Deviation 44.3 fL (36.4-46.3); Red Blood Count 4.57 M/uL (4.20-5.40); White Blood Count 7.98 K/ul (4.8-10.8)
[2023-01-23 06:18] LABS: BUN Creatinine Ratio 18.1 (10-20); Calcium 8.1 mg/dl (8.6-10.3); Est GFR (African American) 63.7 ml/min; Est GFR (Non-African American) 54.9 ml/min; Potassium 3.3 mmol/L (3.5-5.1)
[2023-01-23 06:26] LABS: Prothrombin Time 21.4 Seconds (9.0-12.0)
--- NOTE | 2023-01-23 07:00 | XRay Report ---
XR ankle RT 2V CLINICAL HISTORY: ankle paon TECHNIQUE: 3 views of the right ankle were obtained. Comparison: Comparison is made to right ankle radiographs 01/22/2023 FINDINGS: Interval placement of a cast limiting fine bony detail. Redemonstration of displaced bimalleolar righ t ankle fracture. Soft tissue swelling is seen about the ankle. IMPRESSION: Interval cast placement with unchanged positioning of a displaced bimalleolar fracture with associate d soft tissue swelling. ACT 112: Negative or not required by law. Electronically signed by: Gopi Cote M.D. 01/23/2023 6:58 AM
--- NOTE | 2023-01-23 07:27 | XRay Report ---
XR chest 1V portable CLINICAL HISTORY: pre op TECHNIQUE: Single frontal radiograph of the chest was obtained. Comparison: Comparison is made to chest radiograph 10/14/2017 FINDINGS: Dual lead pacemaker is seen. Cardiomegaly is noted. The aortic arch is calcified. Lungs are underinfl ated but clear. No evidence of pleural effusion or pneumothorax. IMPRESSION: No acute chest disease. Cardiomegaly is noted. ACT 112: Negative or not required by law. Electronically signed by: Gopi Cote M.D. 01/23/2023 7:25 AM
[2023-01-23 08:01] LABS: Estimated Average Glucose 134 mg/dl; Hemoglobin A1C 6.3 % (4.5-5.6)
[2023-01-23] MEDS: hydroCHLOROthiazide 25 MG TAB PO SCH (08:14)
[2023-01-23] MEDS: PANTOprazole 40 MG TAB PO SCH (08:14)
--- NOTE | 2023-01-23 09:48 | Anesthesiology Consultation ---
Date of Service January 23, 2023 Assessment & Plan Chart Review Chart Review: Acceptable Risk for Surgery and Patient NOT seen in Pre Admission Testing History Surgery Operation Date: 01/23/23 12:10 Proposed Procedures p Right Open Reduction Internal Fixation Bimalleolar Ankle Fracture - Magnus Muniz DO Height/Weight Height: 5 ft 3 in Weight: 102 kg Allergies Allergy/AdvReac Type Severity Reaction Status Date / Time aspirin AdvReac Intermediate Vomiting Verified 01/22/23 19:19 morphine AdvReac Intermediate Vomiting Verified 01/22/23 19:19 Medications Home Medications Medication Instructions Recorded Confirmed Last Taken hydrochlorothiazide 12.5 mg capsule 12.5 mg PO DAILY 04/30/19 01/22/23 01/22/23 nitroglycerin 0.4 mg sublingual 0.4 mg sublingual Q5M PRN chest 04/30/19 01/22/23 Unknown tablet pain warfarin 5 mg tablet See Rx Instructions .Route .COMPLEX 04/30/19 01/22/23 01/22/23 levothyroxine 100 mcg tablet 100 mcg PO DAILY 12/30/19 01/22/23 01/22/23 esomeprazole magnesium 20 mg 20 mg PO DAILY 04/13/20 01/22/23 01/22/23 capsule,delayed release (Nexium) fexofenadine 180 mg tablet 90 mg PO DAILY PRN Congestion 10/09/20 01/22/23 Unknown silver sulfadiazine 1 % topical 1 applic topical BID #50 grams 01/20/23 01/22/23 01/22/23 08:00 cream tramadol 50 mg tablet 50 mg PO Q6H PRN pain #30 tabs 01/20/23 01/22/23 Unknown Active Medications Generic Name Dose Route Start Last Admin Trade Name Freq PRN Reason Stop Dose Admin Acetaminophen 650 mg 01/22/23 23:54 01/23/23 08:14 Acetaminophen 325 Mg Tab PO 02/21/23 23:53 650 mg Q4H PRN Administration pain/fever Hydrochlorothiazide 12.5 mg 01/23/23 09:00 01/23/23 08:14 Hydrochlorothiazide 25 Mg Tab PO 02/22/23 08:59 12.5 mg DAILY BISI Administration Sodium Chloride 1,000 mls @ 80 mls/hr 01/22/23 23:54 01/23/23 00:24 Nss 1000ml IV 01/23/23 12:23 80 mls/hr .[id number] BISI Administration Levothyroxine Sodium 100 mcg 01/23/23 06:30 01/23/23 06:04 Levothyroxine Sodium 100 Mcg Tablet PO 02/22/23 06:29 100 mcg DAILYBB BISI Administration Nystatin 1 appln 01/23/23 09:00 01/23/23 06:04 Nystatin Oint 15 Gm Tube EXT 02/22/23 08:59 1 appln BID BISI Administration Pantoprazole Sodium 40 mg 01/23/23 09:00 01/23/23 08:14 Pantoprazole 40 Mg Tab PO 02/22/23 08:59 40 mg DAILY BISI Administration Tramadol HCl 50 mg 01/22/23 23:54 01/23/23 06:03 Tramadol Hcl 50 Mg Tablet PO 02/21/23 23:53 50 mg Q6H PRN Administration pain NPO Date Last Intake of Fluids: 01/22/23 Date Last Intake of Solids: 01/22/23 Past Medical History Medical History Hypertension Paroxysmal atrial fibrillation Past Family History Family History Mother Hypertension Breast cancer Other No family history of bleeding disorder Past Surgical History Surgical History History of cardiac pacemaker History of cholecystectomy History of colonoscopy Social History Smoking Status: Never smoker Do You Dip or Chew Tobacco: No Hx Alcohol Use: No Hx Substance Use: No substance use type: does not use Physical Exam Vital Signs Last Vital Signs Temp 36.6 C 01/23/23 07:16 Pulse 60 01/23/23 07:16 Resp 18 01/23/23 07:16 BP 121/77 01/23/23 07:16 Pulse Ox 96 01/23/23 07:16 O2 Del Method Room Air 01/23/23 07:20 Testing Laboratory Results 01/23/23 05:23 01/23/23 05:23 PT 21.4 Seconds (9.0-12.0) H 01/23/23 05:23 INR 2.0 (0.9-1.1) H 01/23/23 05:23 Hemoglobin A1c 6.3 % (4.5-5.6) H 01/23/23 05:23
--- NOTE | 2023-01-23 10:38 | Hospitalist Progress Note ---
Date of Service January 23, 2023 Assessment & Plan (1) Ankle fracture: Plan: 87-year-old female presents with fall on January 17 with right ankle fracture followed with orthopedics outpatient and has a follow-up appointment, because of increasing redness and warmth at the fracture site. Right ankle fracture S/p mechanical fall on January 17 Patient was seen in [facility] ER on 01/18/23. Per [facility] ER note, due to skin blistering, ortho recommend no emergent operation but that she will need operation eventually. Patient stated she wanted to follow up with Dr Lowry in [place] She was place in a posterior splint and discharged from ER She reported increased redness and blistering at site XR here noted progressively worsening displacement compared to one on 01/20/23 Patient is currently NPO for OR today Will follow up after surgery Ortho on board Will get PT/OT post op Possible skin infection with report of blistering, erythema and warmth Continue ceftriaxone Prediabetes HbA1c level is 6.3 Paroxysmal atrial fibrillation Tachybradycardia syndrome S/p pacemaker On Coumadin. Monitor INR Hypothyroidism On Synthyroid. Hypertension On hydrochlorothiazide. GERD On omeprazole. DVT prophylaxis On Coumadin. I spent a total of 50 minutes coordinating, documenting and providing care for this patient excluding time spent in performance of separately billed services Admission and Anticipated Discharge Date Admission Date: January 22, 2023 Subjective Patient seen and examined Reports only right ankle pain Stated she developed blisters around it with increased warmth Denied any fevers, chills, nausea, vomiting, abd pain, diarrhea Denied any other complaints Physical Exam Constitutional: + well hydrated; no acute distress Eyes: PERRL, conjunctivae normal, anicteric sclerae ENMT: external ear and nose normal, oropharynx normal Respiratory: normal respiratory effort, lungs clear to auscultation Cardiovascular: RRR, S1 S2 Gastrointestinal (Abdomen): normal bowel sounds, soft, nontender, no hepatosplenomegaly Musculoskeletal: Right leg and foot bandaged Neurologic: PERRL, EOMI, accommodation nl, no face palsy, no dysarthria Psychiatric: A+Ox3, euthymic affect Results & Data Results & Data Vital Signs (Past 12 Hours) Vital Signs Temp Pulse Resp BP Pulse Ox O2 Del Method 01/23/23 07:20 Room Air 01/23/23 07:16 36.6 C 60 18 121/77 96 Room Air 01/22/23 23:54 Room Air 01/23/23 01:10 68 18 119/74 95 Room Air 01/22/23 23:54 36.7 C 68 22 144/79 H 95 Room Air 01/22/23 23:54 36.7 C 68 22 144/79 H 95 Room Air Laboratory Results Abnormal lab results 01/22/23 01/22/23 01/23/23 Range/Units 17:56 17:56 05:23 Neut # (Auto) 7.54 H (1.40-6.50) K/uL [place] # (Auto) 1.00 H (0.11-0.59) K/uL PT 21.4 H (9.0-12.0) Seconds INR 2.0 H (0.9-1.1) Potassium (3.5-5.1) mmol/L Carbon Dioxide 33 H (21-32) mmol/L Creatinine 1.21 H (0.6-1.2) mg/dl Glucose 104 H (70-99(Fasting)) mg/dl Hemoglobin A1c (4.5-5.6) % Calcium (8.6-10.3) mg/dl AST 12 L (13-39) U/L 01/23/23 01/23/23 01/23/23 Range/Units 05:23 05:23 05:23 Neut # (Auto) (1.40-6.50) K/uL [place] # (Auto) 0.84 H (0.11-0.59) K/uL PT (9.0-12.0) Seconds INR (0.9-1.1) Potassium 3.3 L (3.5-5.1) mmol/L Carbon Dioxide (21-32) mmol/L Creatinine (0.6-1.2) mg/dl Glucose 110 H (70-99(Fasting)) mg/dl Hemoglobin A1c 6.3 H (4.5-5.6) % Calcium 8.1 L (8.6-10.3) mg/dl AST (13-39) U/L
[2023-01-23] MEDS ORDERED: BUPIVACAINE 0.25% PF 30 ML VIAL ONE (10:39)
[2023-01-23] MEDS: ONDANSETRON INJ 2 MG/ML 2 ML VIAL IV PRN ×2 (11:46→17:35)
--- NOTE | 2023-01-23 11:49 | Orthopedic Consultation ---
Date of Service January 23, 2023 Assessment & Plan (1) Ankle fracture: We discussed diagnosis and treatment options at bedside. I think it is important that we stabilize her ankle sometime today. I discussed doing an open reduction internal fixation of the right ankle or possible external fixator if her tissue quality does not look good or it is too swollen. She understands the risk, benefits, and alternatives to procedure elected to proceed. Questions were answered at bedside and consents were signed. Time was spent scribing the procedure and postop expectations. She is currently NPO. We will plan on fixing her ankle later this afternoon. History of Present Illness Reason for Consultation: Right bimalleolar ankle fracture. Requesting Physician: . Attending Physician: Susanne Barboza MD Any is a pleasant 87-year-old female who fell on January 17 and sustained a fracture dislocation of her right ankle. She was initially treated in emergency room and followed up in our office. She was seen by [facility]. She was placed in a stable trauma splint. She was scheduled to undergo open reduction internal fixation of her right ankle tomorrow. Unfortunately her symptoms have worsened. She was doing with increased pain and discomfort of the right ankle. She came to the emergency room. Radiographs demonstrated a lateral subluxation of the tibiotalar joint. The displacement has worsened. She was admitted to the hospital. Orthopedics was consulted to evaluate and treat.. Allergies Allergy/AdvReac Type Severity Reaction Status Date / Time aspirin AdvReac Intermediate Vomiting Verified 01/22/23 19:19 morphine AdvReac Intermediate Vomiting Verified 01/22/23 19:19 Home Medications Medication Instructions Recorded Confirmed Type hydrochlorothiazide 12.5 mg capsule 12.5 mg PO DAILY 04/30/19 01/22/23 History nitroglycerin 0.4 mg sublingual 0.4 mg sublingual Q5M PRN chest 04/30/19 01/22/23 History tablet pain warfarin 5 mg tablet See Rx Instructions .Route .COMPLEX 04/30/19 01/22/23 History levothyroxine 100 mcg tablet 100 mcg PO DAILY 12/30/19 01/22/23 History esomeprazole magnesium 20 mg 20 mg PO DAILY 04/13/20 01/22/23 History capsule,delayed release (Nexium) fexofenadine 180 mg tablet 90 mg PO DAILY PRN Congestion 10/09/20 01/22/23 History silver sulfadiazine 1 % topical 1 applic topical BID #50 grams 01/20/23 01/22/23 Rx cream tramadol 50 mg tablet 50 mg PO Q6H PRN pain #30 tabs 01/20/23 01/22/23 Rx Past Med/Surg History Medical History Hypertension Paroxysmal atrial fibrillation Surgical History History of cardiac pacemaker History of cholecystectomy History of colonoscopy Family History Mother Hypertension Breast cancer Other No family history of bleeding disorder Social History Smoking Status: Never smoker Second Hand Exposure: No; Do You Dip or Chew Tobacco: No; Hx Alcohol Use: No Hx Substance Use: No Preferred Language: Divehi Communication Ability: Effective Catering Barista Required: No Beliefs That Will Affect Care: None Current Living Situation: Alone Current Living Situation Comment: daughter Guadalupe Mac lives across the street Other Information That Helps Us Care for You: No Feels Safe at Home: Yes Safety Concerns: Feels Safe At This Time Assistive Devices: Glasses Assistive Devices Comment: reading glasses Review of Systems All systems reviewed & are unremarkable except as noted in HPI & below. Physical Exam On physical examination of the right ankle, she has a trauma splint in place. Her right ankle is externally rotated.. Constitutional WD/WN, vitals as above Eyes PERRL, conjunctivae normal, anicteric sclerae ENMT external ear and nose normal, oropharynx normal Neck trachea midline, no thyromegaly Respiratory normal respiratory effort, lungs clear to auscultation Cardiovascular RRR, no murmur, no edema Gastrointestinal (Abdomen) normal bowel sounds, soft, nontender, no hepatosplenomegaly Skin no rashes, warm and dry Psychiatric A+Ox3, euthymic affect Results & Data Results & Data Laboratory Results . Diagnostic Findings X-rays of the right ankle show a bimalleolar right ankle fracture with lateral subluxation of the tibiotalar joint.. PG Care Time/CCT Total # of Minutes Spent Total Time Spent with Patient: Total time spent is greater than 50% in coordination of care (as documented) at patient's floor/unit and/or counseling patient: Coding Level of Care Code 38203 IN/OBS CONSULT LVL 4,60M (57 - DECISION FOR SURGERY) Diagnoses Ankle fracture S82.899A
--- NOTE | 2023-01-23 11:49 | History & Physical Bridge Note ---
Date of Service January 23, 2023 History & Physical Bridge Note I have examined the patient, reviewed the History & Physical and in the interval since the performance of the History & Physical I have noted the following changes of clinical significance: no changes noted
[2023-01-23] MEDS ORDERED: fentaNYL citrate PF 100 MCG/2 ML VIAL ONE (14:02)
[2023-01-23] MEDS ORDERED: MIDAZOLAM HCL 1 MG/ML 2ML VIAL ONE (14:02)
[2023-01-23] MEDS ORDERED: DEXAMETHASONE SOD INJ 4 MG/ML VIAL ONE (14:06)
[2023-01-23] MEDS ORDERED: ONDANSETRON INJ 2 MG/ML 2 ML VIAL ONE (14:06)
[2023-01-23] MEDS ORDERED: LIDOCAINE 2% 2 ML VIAL/AMP(20MG/ML) INFIL ONE (14:06)
[2023-01-23] MEDS ORDERED: PROPOFOL IV EMULSION 10 MG/ML 20 ML VIAL IV ONE (14:06)
[2023-01-23] MEDS ORDERED: BUPIVACAINE/EPINEPHRINE 0.5% MPF 1:200,000 30 ML VIAL ONE (14:25)
[2023-01-23] MEDS ORDERED: ceFAZolin 2,000 MG/15 ML IV PUSH IV ONE (14:28)
[2023-01-23] MEDS ORDERED: fentaNYL citrate PF 100 MCG/2 ML VIAL IV PRN (14:30)
[2023-01-23] MEDS ORDERED: ATROPINE SULFATE 0.1 MG/ML 10ML SYR IV PRN (14:30)
[2023-01-23] MEDS ORDERED: HYDROmorphone INJ 2 MG/ML SYR/VIAL IV PRN (14:30)
[2023-01-23] MEDS ORDERED: ePHEDrine sulfate 50 MG/ML AMP IV PRN (14:30)
[2023-01-23] MEDS ORDERED: ONDANSETRON INJ 2 MG/ML 2 ML VIAL IV PRN (14:30)
[2023-01-23] MEDS ORDERED: WARFARIN SOD 5 MG TAB PO SCH (16:00)
--- NOTE | 2023-01-23 16:00 | Operative Report ---
PG Post Operative Report Pre & Post Diagnosis Operation Date: 01/23/23 12:10 Pre-Op Diagnosis: Right unstable bimalleolar Ankle Fracture with wound breakdown and fracture blisters Post-Op Diagnosis: Right unstable bimalleolar Ankle Fracture with wound breakdown and fracture blisters I identified the patient and participated in the time-out.: Yes Procedure Operation Date: 01/23/23 12:10 Actual Procedures p Application of External Fixator Right Ankle Fracture(Right) - Magnus Muniz DO Surgeon Magnus Muniz DO Senior Climate Advisor Magnus Cantu PA-C Estimated Blood Loss 5 Findings Consistent with Post-Op Diagnosis Specimens None Description of Procedure On January 23, 2023 Any was brought down from her hospital to the preoperative holding area. The operative extremity identified and signed. She was given a nerve block. She was then taken back to the operating room and laid on the table in supine position. She was put under general anesthesia. The right ankle was prepped and draped in sterile fashion. The timeout was done. The patient and the operative extremity was properly identified. There was a large delaminated fracture blister along the medial aspect of her right ankle. There were 2 smaller fracture blisters along the anterior lateral aspect. The wounds did not appear infected. They did not go beneath the subcutaneous layer. A decision was made to apply an external fixator. 2 pins were placed on the tibial shaft. Appropriate placement of the pins were checked on orthogonal fluoroscopic images. A single pin was then placed through the posterior aspect of the calcaneus. The placement of this pin was also checked on fluoroscopy. Clips and bars were then placed. The ankle was reduced and the construct was locked. Multiple fluoroscopic images were used to ensure appropriate alignment of the ankle joint. The wounds were then cleaned. A suture was placed around the pin sites on the tibia. The wounds were dressed with Xeroform and gauze. She was then extubated and transferred back to the hospital bed. She was taken to the postanesthesia care unit in stable condition. She tolerated the procedure well. Magnus Cantu PA-C, was present for the entire procedure. He was critical for patient positioning, prepping, draping, retraction exposure, wound closure and application of sterile dressing. I attest to the content of the Intraoperative Record and any orders documented therein. Any exceptions are noted below.
--- NOTE | 2023-01-23 16:26 | Anesthesiology Progress Note ---
Date of Service January 23, 2023 Anesthesia Post Procedure Vital Signs Vital Signs: Temp Pulse Pulse Pulse Resp BP BP 01/23/23 12:36 36.6 C 60 22 169/73 H 01/23/23 11:18 36.9 C 60 18 138/78 01/23/23 07:20 01/23/23 07:16 36.6 C 60 18 121/77 01/22/23 23:54 01/23/23 01:10 68 18 119/74 01/22/23 23:54 36.7 C 68 22 144/79 H 01/22/23 23:54 36.7 C 68 22 144/79 H 01/22/23 22:00 61 17 127/65 01/22/23 20:58 60 19 117/66 01/22/23 20:58 60 17 01/22/23 18:02 60 20 129/62 01/22/23 17:56 36.8 C 60 18 129/62 Pulse Ox O2 Del Method 01/23/23 12:36 92 Room Air 01/23/23 11:18 92 Room Air 01/23/23 07:20 Room Air 01/23/23 07:16 96 Room Air 01/22/23 23:54 Room Air 01/23/23 01:10 95 Room Air 01/22/23 23:54 95 Room Air 01/22/23 23:54 95 Room Air 01/22/23 22:00 94 Room Air 01/22/23 20:58 91 Room Air 01/22/23 20:58 91 Room Air 01/22/23 18:02 95 Room Air 01/22/23 17:56 95 Room Air Pain Intensity Right Ankle: Pain Intensity: 0 Transfer of Care Handoff Completed per policy Notes Mental Status: alert / awake / arousable and participated in evaluation Patient Amnestic to Procedure: Yes Nausea / Vomiting: adequately controlled Pain: adequately controlled Airway Patency, RR, SpO2: stable & adequate BP & HR: stable & adequate Hydration State: stable & adequate Anesthetic Complications: no major complications apparent and Pt Satisfied with anesthetic care
[2023-01-23] MEDS ORDERED: oxyCODONE HCL IR 5 MG TAB (IMMEDIATE RELEASE) PO PRN (17:19)
[2023-01-23] MEDS: POTASSIUM CHLORIDE / WTR 10 MEQ/100 ML PLCT IV SCH ×2 (17:35→18:29)
--- NOTE | 2023-01-23 19:42 | Fluoroscopy Report ---
FL ankle RT 2V CLINICAL HISTORY: RIGHT ORIF ANKLE COMPARISON STUDY: Right ankle 01/22/2023. FLUOROSCOPY TIME: 38 seconds FLUOROSCOPY IMAGES: 3 Ka,r: 1.1 mGy FINDINGS: External fixation of the bimalleolar right ankle fracture through the calcaneus. There is i mproved anatomic alignment. The hardware appears intact. IMPRESSION: Fluoroscopic assistance provided for external fixation of the bimalleolar right ankle fra cture. ACT 112: Negative or not required by law. Electronically signed by: Antonio Fagan M.D. 01/23/2023 7:41 PM
[2023-01-23] MEDS: SILVER SULFADIAZINE 1% CR 50 GM JAR TOP SCH (20:59)
[2023-01-23] MEDS: cefTRIAXone SODIUM 2,000 MG in DEXTROSE 5% 50 ML IV SCH (21:23)
[2023-01-24] MEDS: LEVOTHYROXINE SODIUM 100 MCG TABLET PO SCH (06:11)
[2023-01-24 06:21] LABS: Hematocrit (blood only) 40.7 % (37.0-47.0); Hemoglobin 13.3 g/dl (12.0-16.0); Mean Corpuscular Hemoglobin 28.6 pg (25.0-34.0); Mean Corpuscular Hgb Conc 32.7 g/dL (32.0-36.0); Mean Corpuscular Volume 87.5 fL (80.0-100.0); Mean Platelet Volume 9.3 fL (9.4-12.4); Platelet Count 297 K/uL (130-400); RDW Coefficient of Variation 13.6 % (11.5-14.5); RDW Standard Deviation 43.6 fL (36.4-46.3); Red Blood Count 4.65 M/uL (4.20-5.40); White Blood Count 10.51 K/ul (4.8-10.8)
[2023-01-24 06:47] LABS: BUN Creatinine Ratio 17.6 (10-20); Calcium 8.2 mg/dl (8.6-10.3); Creatinine Clr Calc Pharmacy 54.2 ml/min; Est GFR (African American) 71.9 ml/min; Phosphorus 2.5 mg/dl (2.5-4.9); Potassium 3.8 mmol/L (3.5-5.1)
[2023-01-24 06:51] LABS: INR 2.5 (0.9-1.1); Prothrombin Time 26.1 Seconds (9.0-12.0)
--- NOTE | 2023-01-24 07:14 | Orthopedic Progress Note ---
Date of Service January 24, 2023 Assessment & Plan (1) Ankle fracture: At this point her ankle is feeling much more stable. The plan will be to leave the external fixator on for 2 to 3 weeks until the soft tissues calm down and then proceed with open reduction internal fixation of her right ankle. Wound care has been consulted for treatment of the open fracture blisters along the ankle. They will also teach her pin site care. She is currently on Rocephin IV every 24 hours and will likely need some sort of oral antibiotic coverage while the external fixator is in place. Physical therapy and Occupational Therapy have been consulted. She is nonweightbearing on her right leg. She lives alone in a one-story house and her daughter lives across the street. She would like to go home if she is able to, however, case management will talk to her about that. She is orthopedically stable for discharge when medically ready. She will follow-up with orthopedics in the office in 2 weeks to evaluate her wounds. Ignacio Agarwal was seen and examined at bedside this morning. Overall she is feeling much better since the surgery. Her ankle feels much more stable. She was able to get some sleep last night. She has no complaints.. Review of Systems All systems reviewed & are unremarkable except as noted in HPI & below. Physical Exam On physical examination the right ankle, the dressing is relatively clean and dry. She has active motion of her toes. She has good capillary refill.. Results & Data Results & Data Laboratory Results . Diagnostic Findings . PG Care Time/CCT Total # of Minutes Spent Total Time Spent with Patient: Total time spent is greater than 50% in coordination of care (as documented) at patient's floor/unit and/or counseling patient: Coding Level of Care Code 92270 Post Operative Follow-Up Diagnoses Ankle fracture S82.899A
[2023-01-24] MEDS: PANTOprazole 40 MG TAB PO SCH (08:12)
[2023-01-24] MEDS: hydroCHLOROthiazide 25 MG TAB PO SCH (08:12)
[2023-01-24] MEDS ORDERED: traMADol HCL 50 MG TABLET PO PRN ×2 (10:54→11:11)
[2023-01-24] MEDS: SILVER SULFADIAZINE 1% CR 50 GM JAR TOP SCH ×2 (11:12→20:03)
[2023-01-24] MEDS: NYSTATIN OINT 15 GM TUBE EXT SCH ×2 (11:12→20:03)
--- NOTE | 2023-01-24 11:14 | Hospitalist Progress Note ---
Date of Service January 24, 2023 Assessment & Plan (1) Ankle fracture: Plan: 87-year-old female presents with fall on January 17 with right ankle fracture followed with orthopedics outpatient and has a follow-up appointment, because of increasing redness and warmth at the fracture site. Right ankle fracture Had a mechanical fall on January 17 Patient was seen in [facility] ER on 01/18/23. Per [facility] ER note, due to skin blistering, ortho recommend no emergent operation but that she will need operation eventually. Patient stated she wanted to follow up with Dr Lowry in [place] She was place in a posterior splint and discharged from ER She reported increased redness and blistering at site XR here noted progressively worsening displacement compared to one on 01/20/23 S/p Application of External Fixator Right Ankle Fracture on 01/23/23 POD #1 PT/OT recommend rehab Ortho on board Will get PT/OT post op Bruising and wound on right ankle Possible infection Continue ceftriaxone Will need to be on antibiotics while on external fixators Continue wound care Prediabetes HbA1c level is 6.3 Provided education regarding diet/lifestyle modification Paroxysmal atrial fibrillation Tachybradycardia syndrome S/p pacemaker On Coumadin. INR is therapeutic Hypothyroidism On Synthroid. Hypertension On hydrochlorothiazide. GERD On omeprazole. DVT prophylaxis On Coumadin. I spent a total of 45 minutes coordinating, documenting and providing care for this patient excluding time spent in performance of separately billed services Admission and Anticipated Discharge Date Admission Date: January 22, 2023 Subjective Patient seen and examined Reports pain at surgical site is well controlled Denied any other complaints Physical Exam Constitutional: + well hydrated; no acute distress Eyes: PERRL, conjunctivae normal, anicteric sclerae ENMT: external ear and nose normal, oropharynx normal Respiratory: normal respiratory effort, lungs clear to auscultation Cardiovascular: Rate/Rhythm: regular rate and regular rhythm S1 S2 Gastrointestinal (Abdomen): normal bowel sounds, soft, nontender, no hepatosplenomegaly Musculoskeletal: Right leg ankle with external fixator Excoriation, wound around right ankle with swelling and erythema Neurologic: PERRL, EOMI, accommodation nl, no face palsy, no dysarthria Psychiatric: A+Ox3, euthymic affect Results & Data Results & Data Vital Signs (Past 12 Hours) Vital Signs Temp Pulse Resp BP Pulse Ox O2 Del Method 01/24/23 07:11 36.8 C 62 18 115/70 97 Room Air 01/24/23 04:44 36.4 C L 60 18 112/70 95 Room Air 01/24/23 00:30 36.3 C L 61 18 109/71 94 Room Air Laboratory Results Abnormal lab results 01/24/23 01/24/23 01/24/23 Range/Units 05:45 05:45 05:45 MPV 9.3 L (9.4-12.4) fL PT 26.1 H (9.0-12.0) Seconds INR 2.5 H (0.9-1.1) Glucose 121 H (70-99(Fasting)) mg/dl Calcium 8.2 L (8.6-10.3) mg/dl
[2023-01-24] MEDS: ACETAMINOPHEN 500 MG TAB PO PRN ×2 (12:33→22:49)
[2023-01-24] MEDS: WARFARIN SOD 2.5 MG TAB PO SCH (15:56)
[2023-01-24] MEDS: ONDANSETRON INJ 2 MG/ML 2 ML VIAL IV PRN ×2 (17:33→22:48)
--- NOTE | 2023-01-24 17:59 | Electrocardiogram Report ---
Test Reason : Blood Pressure : / mmHG Vent. Rate : 060 BPM Atrial Rate : 141 BPM P-R Int : 000 ms QRS Dur : 120 ms QT Int : 440 ms P-R-T Axes : 000 -36 040 degrees QTc Int : 440 ms Suspect unspecified pacemaker failure Ventricular-paced rhythm Abnormal ECG When compared with ECG of 14-OCT-2017 16:10, Electronic ventricular pacemaker has replaced Electronic atrial pacemaker Confirmed by Remy Anderson ([id number]) on 01/24/2023 5:59:22 PM Referred By: REFERRED SELF Confirmed By:Kun Anderson
[2023-01-24] MEDS: cefTRIAXone SODIUM 2,000 MG in DEXTROSE 5% 50 ML IV SCH (20:02)
[2023-01-25] MEDS ORDERED: KETOROLAC TROMETHAMINE 15 MG/ML VIAL IV ONE (02:40)
[2023-01-25] MEDS: LEVOTHYROXINE SODIUM 100 MCG TABLET PO SCH (05:00)
--- NOTE | 2023-01-25 06:06 | Orthopedic Progress Note ---
Date of Service January 25, 2023 Assessment & Plan (1) Ankle fracture: At this point she is stable. She can be discharged to [facility] today. She is nonweightbearing on the right leg. She will likely need an oral antibiotic while the external fixator is in place. She should follow-up with orthopedics in 2 weeks for a wound wound check. Full orthopedic discharge instructions were placed in the discharge summary. Ignacio Agarwal was seen and examined at bedside this morning. Overall she is doing okay. She was seen by wound care yesterday and the wound was dressed. She is on IV Rocephin. At this point she is stable. She has no new complaints.. Review of Systems All systems reviewed & are unremarkable except as noted in HPI & below. Physical Exam On physical examination of the right ankle, the external fixator is intact. She has new dressings from the wound care team. She has active motion of her toes and sensations intact throughout.. Results & Data Results & Data Laboratory Results . Diagnostic Findings . PG Care Time/CCT Total # of Minutes Spent Total Time Spent with Patient: Total time spent is greater than 50% in coordination of care (as documented) at patient's floor/unit and/or counseling patient: Coding Level of Care Code 46702 Post Operative Follow-Up Diagnoses Ankle fracture S82.899A
[2023-01-25 06:11] LABS: Hematocrit (blood only) 40.9 % (37.0-47.0); Hemoglobin 13.5 g/dl (12.0-16.0); Mean Corpuscular Hemoglobin 28.8 pg (25.0-34.0); Mean Corpuscular Volume 87.2 fL (80.0-100.0); Mean Platelet Volume 9.6 fL (9.4-12.4); Platelet Count 286 K/uL (130-400); RDW Coefficient of Variation 13.7 % (11.5-14.5); Red Blood Count 4.69 M/uL (4.20-5.40); White Blood Count 10.03 K/ul (4.8-10.8)
[2023-01-25 06:25] LABS: BUN Creatinine Ratio 20.6 (10-20); Calcium 8.4 mg/dl (8.6-10.3); Est GFR (African American) 54.4 ml/min; Potassium 3.6 mmol/L (3.5-5.1)
[2023-01-25 06:32] LABS: INR 2.7 (0.9-1.1)
[2023-01-25] MEDS: hydroCHLOROthiazide 25 MG TAB PO SCH (09:20)
[2023-01-25] MEDS: SILVER SULFADIAZINE 1% CR 50 GM JAR TOP SCH (09:21)
[2023-01-25] MEDS: NYSTATIN OINT 15 GM TUBE EXT SCH (09:21)
[2023-01-25] MEDS: PANTOprazole 40 MG TAB PO SCH (09:21)
[2023-01-25] MEDS: ACETAMINOPHEN 500 MG TAB PO PRN (09:23)
--- NOTE | 2023-01-25 13:44 | Discharge Summary ---
Date of Service January 25, 2023 Admission HPI Per Admitting Provider This is a 87-year-old female with past medical significant for hypothyroidism prediabetes hyperlipidemia, paroxysmal atrial fibrillation, tachybradycardia syndrome, complete heart block, s/p AV mayra ablation, s/p dual chamber pacemaker, hypertension, chronic diastolic CHF, chronic kidney disease stage III, generalized osteoarthritis, left breast cancer, history of depression, who lives at home alone and daughter lives close by s/p fall on DecemberJanuary 17 and had a right ankle fracture. Saw orthopedics as outpatient when she a lot of blisters which were popped and advised for dressing and a follow-up appointment on next Monday. But the family noticed the ankle getting more warm and red and was worried about infection and came to ER today. In the ER imaging studies showed worsening fracture and was wrapped and antibiotics was given. Patient says whenever he puts weight on the leg she has a lot of pain. Denies any fevers. Currently resting comfortably and hemodynamically stable. Denies any headache, no dizziness, no blurred visions, no earaches, no runny nose, no sore throat, no cough, no difficulty swallowing. Appetite is good. Not sleeping well because of pain. Denies any chest pain or shortness of breath. No nausea or vomitings. No abdominal pain. Normal bowel and bladder movements. Patient has some rash in her groin region. Past medical history as mentioned above. Past surgical history cardiac ablation AV junction, colonoscopy, pacemaker implant, laparoscopic cholecystectomy, left partial mastectomy, bilateral cataract surgery. Admission Exam Per Admitting Provider General- adult Head- atraumatic Eyes- PERRL, ENT- oropharynx clear Neck- supple, no JVD, ; carotids +2/2, no bruits appreciated Lungs- clear to auscultation and percussion Heart- regular rhythm; no murmur, no gallop, no rub appreciated Abdomen- normal bowel sounds, soft, nontender, no masses or hepatosplenomegaly Extremities- no pretibial edema, right lower extremity wrapped in dressing Neuro- alert, oriented x 3; PERRL, no facial palsy; no dysarthria;non focal Skin- warm & dry Principal Diagnosis Right ankle fracture status post application of external fixator 01/23/23 Discharge Exam GENERAL: Alert and oriented x3. NAD, on RA. HEENT: No pallor, no icterus. Pupils equal, round and reactive to light. Oral mucosa moist. NECK: No JVD, no neck masses. HEART: S1 and S2 heard. Regular rate and rhythm. No murmur, no gallop. RESPIRATORY SYSTEM: Normal AP diameter. No accessory muscle use. No wheezing, no crackles. ABDOMEN: Soft, bowel sounds present, nontender, no distention. CENTRAL NERVOUS SYSTEM: No facial droop. Speech is clear. Obeys simple commands. Moves extremities. EXTREMITIES: RLE w/ ext fixator at ankle, swelling +, dressing c/d/i. wound images reviewed. Discharge Data Allergies Allergy/AdvReac Type Severity Reaction Status Date / Time aspirin AdvReac Intermediate Vomiting Verified 01/22/23 19:19 morphine AdvReac Intermediate Vomiting Verified 01/22/23 19:19 Consultations 01/22/23 20:41 ED Decision to Admit Stat 01/23/23 08:00 Consult Orthopedic Surgery Routine Procedures Performed Operation Date: 01/23/23 12:10 Actual Procedures p Application of External Fixator Right Ankle Fracture(Right) - Magnus Muniz DO Ordered Studies 01/23/23 14:30 US - OR guided needle placemen Routine 01/23/23 15:00 FL ankle RT 2V Routine Hospital Course (1) Ankle fracture: Per prior attending with addendum: 87-year-old female presents with fall on January 17 with right ankle fracture followed with orthopedics outpatient and has a follow-up appointment, because of increasing redness and warmth at the fracture site. Right ankle fracture Had a mechanical fall on January 17 Patient was seen in [facility] ER on 01/18/23. Per [facility] ER note, due to skin blistering, ortho recommend no emergent operation but that she will need operation eventually. Patient stated she wanted to follow up with Dr Lowry in [place] She was place in a posterior splint and discharged from ER She reported increased redness and blistering at site XR here noted progressively worsening displacement compared to one on 01/20/23 S/p Application of External Fixator Right Ankle Fracture on 01/23/23 POD #1 PT/OT recommend rehab Ortho on board Will get PT/OT post op Bruising and wound on right ankle Possible infection Continue ceftriaxone Will need to be on antibiotics while on external fixators Continue wound care Prediabetes HbA1c level is 6.3 Provided education regarding diet/lifestyle modification Paroxysmal atrial fibrillation Tachybradycardia syndrome S/p pacemaker On Coumadin. INR is therapeutic Hypothyroidism On Synthroid. Hypertension On hydrochlorothiazide. GERD On omeprazole. DVT prophylaxis On Coumadin. Addendum: Patient was seen and examined at bedside, patient is hemodynamically stable, patient was awaiting placement, patient will be discharged on oral antibiotics for the duration of external fixator and until further evaluation by orthopedic at 2 weeks visit. Patient advised to communicate with orthopedic office or PCP office if her antibiotics run out prior to being seen by orthopedics. She will need to continue her antibiotic until the external fixator is in place. Otherwise patient offers no other complaints, pain is fairly managed with Tylenol. She is being discharged to rehab with following instruction at the point of discharge: Follow-up with your primary care physician within a week time and likely you will need labs CBC/CMP/magnesium/phosphorus. You might also need PT/INR in 2 to 3 days time. Follow-up with orthopedics in 1 to 2 weeks upon discharge. As discussed at bedside, you will be discharged on oral antibiotic until seen and evaluated by orthopedics. Maintain oral antibiotic therapy as long as your external fixator on the right lower leg is in place. If you run out of antibiotic, communicate with your orthopedic office or primary care office. Probiotic will be added. Please make sure that you are able to get your medications today by calling your pharmacy before you leave the hospital so that your treatment continuity is not broken. Home Health Attestation I certify that this patient is under my care and that I, or a physicians elementary assistant teacher working with me, had a face to-face encounter that meets the home health [id number] encounter requirements with this patient. The encounter with the patient was in whole, or in part, for the following medical condition, which is the primary reason for home health care (list medical condition): I certify that, based on my findings, the following services are medically necessary home health services: My clinical findings support the need for the above services because: Further, I certify that my clinical findings support that this patient is homebound (i.e. absences from home require considerable and taxing effort and are for medical reasons or congregation services or infrequently or of short duration when for other reasons) because: Certification for Home Health Services: Based on the above findings, I certify that this patient is confined to the home and needs intermittent retirement care, physical therapy and/or speech therapy or continues to need occupational therapy. The patient is under my care, and I have initiated the establishment of the plan of care. This patient will be followed by a physician who will periodically review the plan of care. Total Time Total Time Spent Total Time Spent (In Minutes): 45 Discharge Plan Discharge Items Patient Disposition: Transfer Inpatient Rehab Fac Reason For Visit: RIGHT ANKLE FRACTURE AND INFECTION Discharge Diagnosis: Right ankle fracture status post application of external fixator 01/23/23 Activity: Per Instructions section Non-emergency contact: Primary Care Provider Call non-emergency contact if: you have any medication questions, your pain is not controlled and your temperature is above 101 Follow-up/Referrals: Sobia Gray MD [Primary Care Provider] - Diet: Heart Healthy [place] Attending Provider Instructions: Follow-up with your primary care physician within a week time and likely you will need labs CBC/CMP/magnesium/phosphorus. You might also need PT/INR in 2 to 3 days time. Follow-up with orthopedics in 1 to 2 weeks upon discharge. As discussed at bedside, you will be discharged on oral antibiotic until seen and evaluated by orthopedics. Maintain oral antibiotic therapy as long as your external fixator on the right lower leg is in place. If you run out of antibiotic, communicate with your orthopedic office or primary care office. Probiotic will be added. Please make sure that you are able to get your medications today by calling your pharmacy before you leave the hospital so that your treatment continuity is not broken. [employer] Tender Provider Instructions: Orthopedic instructions: You were treated by Dr. Magnus Muniz with [facility] orthopedics. Nonweightbearing on the right leg. Wound care and pin site management per the wound care team. Continue oral antibiotics. Continue Coumadin for DVT prophylaxis. Follow-up with orthopedics in 2 weeks for a wound check. Please call the office to set up an appointment for a time that works for you. Office phone number is [phone] Pending Studies at Discharge: No Stand-Alone Forms: My Thing5 [facility] Skilled Items Patient informed of condition?: Yes DNR: No Discharge Level of Care: Acute rehab Communicable Disease: No Discharge Prognosis: Stable Lines: None Urinary Catheter: No Medications and DC Order Prescriptions: New acetaminophen [Tylenol Extra Strength] 500 mg Tablet 1,000 mg PO Q8H PRN (Reason: pain) Qty: 30 0RF Probiotic 3 billion cell capsule 3,000 mmu cells PO DAILY Qty: 21 0RF Rx Instructions: administer with a meal doxycycline hyclate 100 mg tablet 100 mg PO BID Qty: 28 0RF cephalexin 750 mg capsule 750 mg PO Q8H Qty: 42 0RF Continued levothyroxine 100 mcg tablet 100 mcg PO DAILY fexofenadine 180 mg tablet 90 mg PO DAILY PRN (Reason: Congestion) esomeprazole magnesium [Nexium] 20 mg capsule,delayed release(DR/EC) 20 mg PO DAILY silver sulfadiazine 1 % cream 1 applic topical BID Qty: 50 0RF Rx Instructions: apply a 1.5 mm thickness tramadol 50 mg tablet 50 mg PO Q6H PRN (Reason: pain) Qty: 30 0RF nitroglycerin 0.4 mg tablet, sublingual 0.4 mg SL Q5M PRN (Reason: chest pain) hydrochlorothiazide 12.5 mg capsule 12.5 mg PO DAILY warfarin 5 mg tablet See Rx Instructions .ROUTE .COMPLEX Rx Instructions: TAKES 5 MG ON MONDAYS ONLY, THEN 2.5 MG ON ALL OTHER DAYS. Discharge Orders: Discharge Order (Routine); Ordered 01/25/23 Ordered By: Jacque Wilson/Other Patient Handouts: Discharge Instructions: Pin Care Admission Data Admit Date/Time: 01/22/23 22:13 Attending Provider: Jacque Simeon Admit Provider: Sameer Anderson Primary Care Provider: Sobia Gray Other Providers: Delvin Li ; Sameer Anderson ; Dusty Burroughs
[2023-01-25] MEDS: WARFARIN SOD 2.5 MG TAB PO SCH (15:38)
== END 2023-01-25 16:15 | DRG 563 ==
LOC: ED 17:43 → 3E 22:13 → SUATTDRO 22:13 → 3E 23:27

== ENCOUNTER 2023-02-23 09:56 | Inpatient (IN) ==
--- NOTE | 2023-02-22 09:38 | Anesthesiology Consultation ---
Date of Service February 22, 2023 Assessment & Plan (1) Encounter for pre-operative examination: Chart Review Chart Review: Acceptable Risk for Surgery (pending DOS pacemaker interrogation ) and Patient NOT seen in Pre Admission Testing - Discussed preop EKG with Dr. Kat (regarding "suspect unspecified pacemaker failure")- did contact Dr. Hinton- patient is unable to have the pacemaker check remotely due to residing in senior care; Dr Hinton recommends checking pacemaker prior to procedure (she feels pacemaker is under sensing AF and that is why EKG is reading that way but will interrogate pacemaker to be sure). Dr. Hinton recommends 10am arrival time and to call lab tester upon patient arrival so that pacemaker rep can come interrogate device (Dr. Hinton did inform [employer] pacemaker rep). OR informed as well as anesthesiologist that has case (Dr. Adame). - Check coags AM DOS -COVID screening: Per PAT nursing assessment on 02/22/23. Pt resides at [facility]. No known COVID-19 positive contacts or current COVID-19 related symptoms. Travel screen negative. Pt will need preop Covid testing- will order Zutux for DOS Application of External Fixator Right Ankle Fracture(Right) 01/23/23= Done under [place] with LMA #4, good seal x 2 attempts Patient seen by cardiology 05/26/2022 = patient seen for routine follow-up. Feeling better since recent upgrade to biventricular pacemaker. HypertensionBP at goal. DyslipidemiaLDL mildly elevatedhas been well-controlled in the past. Will order repeat lipid panel with yearly blood work. Paroxysmal atrial fibrillationon Coumadin. Chronic diastolic CHFeuvolemic on exam today. Follow-up in 1 year. History Surgery Operation Date: 02/23/23 12:15 Proposed Procedures p Removal External Fixator, Open Reduction Internal Fixation Right Ankle Fracture - Magnus Muniz, Height/Weight Height: 5 ft 5 in Weight: 102.875 kg Allergies Allergy/AdvReac Type Severity Reaction Status Date / Time aspirin AdvReac Intermediate Vomiting Verified 02/22/23 11:22 morphine AdvReac Intermediate Vomiting Verified 02/22/23 11:22 Medications Home Medications Medication Instructions Recorded Confirmed Last Taken hydrochlorothiazide 12.5 mg capsule 12.5 mg PO DAILY 04/30/19 02/22/23 01/22/23 nitroglycerin 0.4 mg sublingual 0.4 mg sublingual Q5M PRN chest 04/30/19 02/22/23 Unknown tablet pain levothyroxine 100 mcg tablet 100 mcg PO DAILY 12/30/19 02/22/23 01/22/23 esomeprazole magnesium 20 mg 20 mg PO DAILY 04/13/20 02/22/23 01/22/23 capsule,delayed release (Nexium) fexofenadine 180 mg tablet 90 mg PO DAILY PRN Congestion 10/09/20 02/22/23 Unknown tramadol 50 mg tablet 50 mg PO Q6H PRN pain #30 tabs 01/20/23 02/22/23 Unknown acetaminophen 500 mg tablet 1,000 mg PO Q8H PRN pain #30 tabs 01/25/23 02/22/23 Unknown (Tylenol Extra Strength) lactobacillus combination no.4 3 3,000 mmu cells PO DAILY #21 caps 01/25/23 02/22/23 Unknown billion cell capsule (Probiotic) ondansetron HCl 4 mg tablet 4 mg PO Q6H PRN Nausea 02/22/23 02/22/23 Unknown sennosides 8.6 mg-docusate sodium 1 tab-cap PO BID 02/22/23 02/22/23 Unknown 50 mg tablet (Senna-S) sertraline 25 mg tablet 25 mg PO DAILY 02/22/23 02/22/23 Unknown warfarin 2 mg tablet 2 mg PO UD 02/22/23 02/22/23 Unknown Past Medical History Medical History Breast cancer 2020- Left - s/p lumpectomy Chronic diastolic CHF (congestive heart failure) CKD (chronic kidney disease), stage III Complete heart block s/p AV mayra ablation and dual chamber pacemaker Depression GERD (gastroesophageal reflux disease) Hyperlipidemia Hypertension Hypothyroidism Osteoarthritis Paroxysmal atrial fibrillation Dx'ed 2014 On Warfarin Prediabetes Tachy-hoang syndrome s/p pacemaker placement Tinnitus Past Family History Family History Mother Hypertension Breast cancer Other No family history of bleeding disorder Past Surgical History Surgical History History of ankle surgery Application of External Fixator Right Ankle Fracture(Right) 01/23/23= Done under [place] with LMA #4 History of cardiac pacemaker Placed 2015; upgrade to BiV 11/08/21 History of cholecystectomy History of colonoscopy History of lumpectomy of left breast Social History Smoking Status: Unknown if ever smoked Alcohol Intake Frequency Comment: unknown Substance Use Type Other:: unknown Lab Results Anesthesia Preop Results Results Anesthesia Widget: WBC 10.03 K/ul (4.8-10.8) 01/25/23 Hgb 13.5 g/dl (12.0-16.0) 01/25/23 Hct 40.9 % (37.0-47.0) 01/25/23 Plt 286 K/uL (130-400) 01/25/23 Na 137 mmol/L (136-145) 01/25/23 K 3.6 mmol/L (3.5-5.1) 01/25/23 Cl 102 mmol/L (98-107) 01/25/23 CO2 28 mmol/L (21-32) 01/25/23 BUN 22 mg/dl (6-23) 01/25/23 Creat 1.07 mg/dl (0.6-1.2) 01/25/23 Glucose Level 118 mg/dl (70-99(Fasting)) H 01/25/23 PT 28.0 Seconds (9.0-12.0) H 01/25/23 INR 2.7 (0.9-1.1) H 01/25/23 HA1c 6.3 % (4.5-5.6) H 01/23/23 Testing Electrocardiogram Date: 01/23/23 Suspect unspecified pacemaker failure Ventricular paced rhythm at 60bpm Chest X-Ray Date: 01/23/23 FINDINGS: Dual lead pacemaker is seen. Cardiomegaly is noted. The aortic arch is calcified. Lungs are underinflated but clear. No evidence of pleural effusion or pneumothorax. IMPRESSION: No acute chest disease. Cardiomegaly is noted. Echocardiogram Date: 10/05/21 EF: 65% LV Function: normal RWMA: + none Other Findings: + LVH (mild/concentric ) Nondilated cardiac chambers Mild AR. Mild TR. Estimated PASP 31 mmHg. Stress Test Date: 09/29/17 Type: nuclear Normal pharmacologic Cardiolite stress test without evidence of infarct or ischemia. Normal pharmacologic Cardiolite stress EKG. Normal wall motion analysis. Normal post stress ejection fraction. Other Testing Pacemaker check 01/11/23= [employer] device. Implant date 11/08/2021. Battery is 9.0 years left. Mode: DDDR. Normal device function. 100% AF burden since 11/2022. Presenting rhythm is atrial fibrillation and biventricular paced. Atrial pacing 74%. RV pacing 100%. LV pacing 100%.
--- NOTE | 2023-02-22 11:38 | PAT Medication Instructions ---
Medication Instructions Date of Service February 22, 2023 Home Medications Medication Instructions Recorded tramadol 50 mg tablet 50 mg PO Q6H PRN pain #30 tabs 01/20/23 acetaminophen 500 mg tablet 1,000 mg PO Q8H PRN pain #30 tabs 01/25/23 (Tylenol Extra Strength) lactobacillus combination no.4 3 3,000 mmu cells PO DAILY #21 caps 01/25/23 billion cell capsule (Probiotic) hydrochlorothiazide 12.5 mg capsule 12.5 mg PO DAILY nitroglycerin 0.4 mg sublingual tablet 0.4 mg sublingual Q5M PRN chest pain levothyroxine 100 mcg tablet 100 mcg PO DAILY esomeprazole magnesium 20 mg capsule,delayed release (Nexium) 20 mg PO DAILY fexofenadine 180 mg tablet 90 mg PO DAILY PRN Congestion tramadol 50 mg tablet 50 mg PO Q6H PRN pain acetaminophen 500 mg tablet (Tylenol Extra Strength) 1,000 mg PO Q8H PRN pain lactobacillus combination no.4 3 billion cell capsule (Probiotic) 3,000 mmu cells PO DAILY ondansetron HCl 4 mg tablet 4 mg PO Q6H PRN Nausea sennosides 8.6 mg-docusate sodium 50 mg tablet (Senna-S) 1 tab-cap PO BID sertraline 25 mg tablet 25 mg PO DAILY warfarin 2 mg tablet 2 mg PO UD Continue as directed nitroglycerin 0.4 mg sublingual tablet 0.4 mg sublingual Q5M PRN chest pain (if needed) ASK your prescriber and surgeon warfarin 2 mg tablet 2 mg PO UD DO NOT take the morning of surgery hydrochlorothiazide 12.5 mg capsule 12.5 mg PO DAILY fexofenadine 180 mg tablet 90 mg PO DAILY PRN Congestion lactobacillus combination no.4 3 billion cell capsule (Probiotic) 3,000 mmu cells PO DAILY sennosides 8.6 mg-docusate sodium 50 mg tablet (Senna-S) 1 tab-cap PO BID Take morning of surgery With a small sip of water, OTHERWISE NOTHING TO EAT OR DRINK AFTER MIDNIGHT: levothyroxine 100 mcg tablet 100 mcg PO DAILY esomeprazole magnesium 20 mg capsule,delayed release (Nexium) 20 mg PO DAILY tramadol 50 mg tablet 50 mg PO Q6H PRN pain (if needed) acetaminophen 500 mg tablet (Tylenol Extra Strength) 1,000 mg PO Q8H PRN pain (if needed) ondansetron HCl 4 mg tablet 4 mg PO Q6H PRN Nausea (if needed) sertraline 25 mg tablet 25 mg PO DAILY Take evening before surgery tramadol 50 mg tablet 50 mg PO Q6H PRN pain (if needed) acetaminophen 500 mg tablet (Tylenol Extra Strength) 1,000 mg PO Q8H PRN pain (if needed) ondansetron HCl 4 mg tablet 4 mg PO Q6H PRN Nausea (if needed) sennosides 8.6 mg-docusate sodium 50 mg tablet (Senna-S) 1 tab-cap PO BID Other Notes If you have any questions please call us at [phone] or [phone] or [phone] or [phone]
[~2023-02-23 09:56] MED LIST changes: +EPINEPHrine INJ 1 MG/ML AMP ONE; -ESOM20CA PO; -LEVO75TA5 PO; -LOSA25TA18 PO; +LR 15ML/HR IV SCH; +LR 60ML/HR IV SCH; -METO50TA16 PO; +ROPIVACAINE 0.5% 5 MG/ML 30 ML VIAL ONE; -WARF5TAB90 PO; +ceFAZolin 2000MG 2,000 MG/15 ML SYR IV SCH
[2023-02-23] MEDS ORDERED: fentaNYL citrate PF 100 MCG/2 ML VIAL ONE (10:49)
[2023-02-23 11:04] LABS: INR 1.3 (0.9-1.1); Partial Thromboplastin Ratio 1.1; Partial Thromboplastin Time 30.8 Seconds (21.0-31.0); Prothrombin Time 14.1 Seconds (9.0-12.0)
--- NOTE | 2023-02-23 11:28 | History & Physical Bridge Note ---
Date of Service February 23, 2023 History & Physical Bridge Note I have examined the patient, reviewed the History & Physical and in the interval since the performance of the History & Physical I have noted the following changes of clinical significance: no changes noted
[2023-02-23] MEDS ORDERED: BUPIVACAINE 0.25% PF 30 ML VIAL ONE (11:51)
[2023-02-23] MEDS ORDERED: ONDANSETRON INJ 2 MG/ML 2 ML VIAL ONE ×2 (12:13→12:43)
[2023-02-23] MEDS ORDERED: PROPOFOL IV EMULSION 10 MG/ML 20 ML VIAL IV ONE (12:43)
[2023-02-23] MEDS ORDERED: DEXAMETHASONE SOD INJ 4 MG/ML VIAL ONE (12:43)
[2023-02-23] MEDS ORDERED: GLYCOPYRROLATE 0.2 MG/ML VIAL ONE (12:43)
[2023-02-23] MEDS ORDERED: METOCLOPRAMIDE HCL INJ 5 MG/ML 2 ML VIAL ONE (14:21)
[2023-02-23] MEDS ORDERED: FLUMAZENIL 0.1 MG/1 ML 10 ML VIAL IV PRN (14:45)
[2023-02-23] MEDS ORDERED: NALOXONE HCL 0.4 MG/1 ML VIAL/CARP IV PRN ×2 (14:45→16:32)
[2023-02-23] MEDS ORDERED: LABETALOL HCL IV 5 MG/ML 20ML IV PRN (14:45)
[2023-02-23] MEDS ORDERED: fentaNYL citrate PF 100 MCG/2 ML VIAL IV PRN (14:45)
[2023-02-23] MEDS ORDERED: METOCLOPRAMIDE HCL INJ 5 MG/ML 2 ML VIAL IV PRN ×2 (14:45→16:32)
[2023-02-23] MEDS ORDERED: ePHEDrine sulfate 50 MG/ML AMP IV PRN (14:45)
[2023-02-23] MEDS ORDERED: PROMETHAZINE HCL 12.5 MG in SODIUM CHLORIDE 0.9% 50 ML IV PRN (14:45)
[2023-02-23] MEDS ORDERED: ONDANSETRON INJ 2 MG/ML 2 ML VIAL IV PRN ×2 (14:45→16:32)
[2023-02-23] MEDS ORDERED: HYDROmorphone INJ 1 MG/ML SYRINGE IV PRN (14:45)
[2023-02-23] MEDS ORDERED: ATROPINE SULFATE 0.1 MG/ML 10ML SYR IV PRN (14:45)
--- NOTE | 2023-02-23 15:33 | Operative Report ---
PG Post Operative Report Pre & Post Diagnosis Operation Date: 02/23/23 12:15 Pre-Op Diagnosis: Displaced Right Ankle Fracture Post-Op Diagnosis: Displaced Right Ankle Fracture I identified the patient and participated in the time-out.: Yes Procedure Operation Date: 02/23/23 12:15 Actual Procedures p Removal External Fixator, Open Reduction Internal Fixation Right Ankle Fracture(Right) - Magnus Muniz DO Surgeon Magnus Muniz DO Legal Officer Magnus Cantu PA-C Estimated Blood Loss 50 Findings Consistent with Post-Op Diagnosis Specimens None Description of Procedure On February 23, 2023 Any arrived at [facility] for the above procedure. She was seen in the preop holding area and the operative extremity identified and signed. She is given a preoperative antibiotic. She was taken back the operative room and laid on table in supine position. She was brought in and general anesthesia. The right leg was then prepped with some Betadine. The external fixator was then disassembled and removed. The right leg was then prepped and draped in sterile fashion. A timeout was done. The patient and the operative extremity was properly identified. A longitudinal incision was made over the distal fibula. Dissection was taken down through the fascia. Care was taken not to disrupt the intermediate branch of the peroneal nerve. The fracture was exposed. Time was spent removing any old fracture callus. The fracture was then aligned with a reduction clamp. Alignment was then checked on fluoroscopy. A single 5 hole Synthes distal fibular locking plate was placed. I had to bend the plate a little bit to fit the anatomy of the distal fibula. A single locking screw was placed proximally and a single locking screw was placed distally. Fluoroscopic images were used to ensure appropriate alignment of the plate and the fracture. 2 remaining proximal screws were placed and several remaining distal screws were placed. Screw lengths were checked on fluoroscopy. Attention was then turned to the medial side. A curvilinear incision was made over the medial malleolus. Dissection was taken down through the fascia. The fracture was identified. Care was taken to remove any old fracture callus. The fracture was then reduced with a reduction clamp. 2 guidewires were placed. Appropriate placement of the guidewires were checked on fluoroscopic imaging. 244 mm Synthes 4.0 mm cannulated screws were then placed. I was able to get a good bite on each screw. Final fluoroscopic images showed anatomic alignment of the fracture and mosque of the tibiotalar joint. The wounds were then irrigated. The deep layer was closed with #0 Vicryl suture. Skin was closed with some 2-0 Vicryl and some 3-0 nylon suture in a vertical mattress fashion. She was then placed in a trauma splint. She was then extubated and transferred back to hospital bed. She was taken to the postanesthesia care unit in stable condition. She tolerated the procedure well. Magnus Cantu PA-C, was present for the entire procedure. He was critical for patient positioning, prepping, draping, retraction exposure, wound closure and application of sterile dressing. I attest to the content of the Intraoperative Record and any orders documented therein. Any exceptions are noted below.
--- NOTE | 2023-02-23 15:46 | Anesthesiology Progress Note ---
Date of Service February 23, 2023 Anesthesia Post Procedure Vital Signs Vital Signs: Temp Pulse Pulse Resp BP BP Pulse Ox 02/23/23 15:25 60 16 130/80 95 02/23/23 15:15 60 12 137/74 99 02/23/23 15:09 36 C L 60 18 135/93 98 02/23/23 10:26 36.8 C 63 18 131/63 97 O2 Del Method O2 Flow Rate 02/23/23 15:25 Room Air 02/23/23 15:15 Room Air 02/23/23 15:09 Oxymask 6 02/23/23 10:26 Room Air Pain Intensity Right Ankle: Pain Intensity: 6 Transfer of Care Handoff Completed per policy Notes Mental Status: alert / awake / arousable Patient Amnestic to Procedure: Yes Nausea / Vomiting: adequately controlled Pain: adequately controlled Airway Patency, RR, SpO2: stable & adequate BP & HR: stable & adequate Hydration State: stable & adequate Anesthetic Complications: no major complications apparent
--- NOTE | 2023-02-23 16:21 | Fluoroscopy Report ---
FL ankle RT min 3V RTN CLINICAL HISTORY: RIGHT ANKLE ORIF COMPARISON STUDY: Right ankle 02/15/2023. FLUOROSCOPY TIME: 43 seconds FLUOROSCOPY IMAGES: 3 Ka,r: 1.9 mGy FINDINGS: The external fixator has been removed. There is a cortical plate and screws transfixing the distal fibular fracture. There are 2 screws within the medial malleolus. The hardware appears intact . Alignment appears near-anatomic. IMPRESSION: Fluoroscopic assistance as above. ACT 112: Negative or not required by law. Electronically signed by: Antonio Fagan M.D. 02/23/2023 4:20 PM
[2023-02-23] MEDS ORDERED: HYDROmorphone INJ 0.5 MG/0.5 ML SYR IV PRN (16:32)
[2023-02-23] MEDS ORDERED: FEXOFENADINE HCL 180 MG TAB PO PRN (16:32)
[2023-02-23] MEDS ORDERED: SODIUM CHLORIDE 0.9% 1000ML 1,000 ML IV SCH (16:32)
[2023-02-23] MEDS ORDERED: bisacodyL 10 MG SUPP PR PRN (16:32)
[2023-02-23] MEDS ORDERED: NITROGLYCERIN SL 0.4 MG/TAB TAB SL PRN (16:32)
[2023-02-23] MEDS ORDERED: traMADol HCL 50 MG TABLET PO PRN (16:32)
[2023-02-23] MEDS ORDERED: MAGNESIUM HYDROXIDE SUSP 30 ML UDC PO PRN (16:32)
[2023-02-23] MEDS ORDERED: ONDANSETRON 4 MG OD TAB PO PRN (16:43)
[2023-02-23] MEDS ORDERED: WARFARIN SOD 2 MG TAB PO SCH (17:00)
[2023-02-23] MEDS: KETOROLAC TROMETHAMINE 15 MG/ML VIAL IV SCH ×2 (17:37→23:48)
[2023-02-23] MEDS: DOCUSATE SODIUM 100 MG CAP PO SCH (20:05)
[2023-02-23] MEDS: ceFAZolin 2000MG 2,000 MG/15 ML SYR IV SCH (20:08)
[2023-02-23] MEDS ORDERED: SENNA 8.6 MG TAB PO SCH (21:00)
[2023-02-23] MEDS ORDERED: ASPIRIN 81 MG ECTAB PO SCH (21:00)
[2023-02-23] MEDS: ACETAMINOPHEN 500 MG TAB PO SCH (22:10)
[2023-02-24] MEDS: ACETAMINOPHEN 500 MG TAB PO SCH (06:04)
[2023-02-24] MEDS: ceFAZolin 2000MG 2,000 MG/15 ML SYR IV SCH (06:04)
--- NOTE | 2023-02-24 06:10 | Orthopedic Progress Note ---
Date of Service February 24, 2023 Assessment & Plan (1) Closed right ankle fracture: Overall she seems to be doing fairly well. We will wait for some the nerve blocks to wear off. She has a right ankle elevated. She will be nonweightbearing for 6 weeks. She is orthopedically stable for discharge back to [place] today. She will follow-up with orthopedics next week for a splint change and a wound check. Ignacio Agarwal was seen and examined at bedside this morning. Overall she is doing fairly well. She is not having much pain in the right ankle. She still has some numbness in her foot. She has her ankle elevated. She has no complaints.. Review of Systems All systems reviewed & are unremarkable except as noted in HPI & below. Physical Exam On physical examination of the right foot, the trauma splint is clean and dry and is elevated. She has active motion of her toes. She seems to have some peeling on the dorsal aspect of her toes but some decrease sensation on the plantar aspect.. Results & Data Results & Data Laboratory Results . Diagnostic Findings . PG Care Time/CCT Total # of Minutes Spent Total Time Spent with Patient: Total time spent is greater than 50% in coordination of care (as documented) at patient's floor/unit and/or counseling patient: Coding Level of Care Code 52582 Post Operative Follow-Up Diagnoses Closed right ankle fracture S82.891A
[2023-02-24] MEDS: KETOROLAC TROMETHAMINE 15 MG/ML VIAL IV SCH ×2 (06:12→10:36)
--- NOTE | 2023-02-24 06:15 | Discharge Summary ---
Date of Service February 24, 2023 Principal Diagnosis Same as "Discharge Diagnosis" noted below under Discharge Instructions. Discharge Exam On physical examination of the right foot, the trauma splint is clean and dry and is elevated. She has active motion of her toes. She seems to have some peeling on the dorsal aspect of her toes but some decrease sensation on the plantar aspect.. Discharge Data Procedures Performed Operation Date: 02/23/23 12:15 Actual Procedures p Removal External Fixator, Open Reduction Internal Fixation Right Ankle Fracture(Right) - Magnus Muniz DO Ordered Studies 02/23/23 05:00 US - OR guided needle placemen Routine 02/23/23 12:15 FL ankle RT min 3V RTN Routine Hospital Course (1) Closed right ankle fracture: On February 23, 2023 Any arrived at [facility] and underwent a removal of her external fixator and open reduction internal fixation of her right ankle without complication. She had a general anesthetic. Postoperatively she was started on antibiotics and transferred to the general orthopedic floors. Her hospital course was uneventful. On postop day #1, her vital signs were stable and her pain was well-controlled. Her right ankle is elevated. She is nonweightbearing on her right leg for 6 weeks. She is on Coumadin for DVT prophylaxis. She was then discharged back to [place]. She will follow-up with orthopedics next week. PG Care Time/CCT Total # of Minutes Spent Total Time Spent with Patient: Total time spent is greater than 50% in coordination of care (as documented) at patient's floor/unit and/or counseling patient: Discharge Plan Discharge Items Patient Disposition: Home - Home Health Services Reason For Visit: POST SURGICAL CARE Discharge Diagnosis: Right ankle fracture Activity: As commented below Non-emergency contact: Surgeon Call non-emergency contact if: your wound has increased redness and your wound has increased drainage Follow-up/Referrals: Sobia Gray MD [Primary Care Provider] - Diet: Regular Addtl Attending Provider Instructions: ORTHOPEDIC INSTRUCTIONS Activity Recommendations: Nonweightbearing on the right leg Medications: Take aspirin 81 mg twice a day for DVT prophylaxis. Take Keflex 500 mg 4 times a day for 10 days to prevent any infections. Dressing Care: Leave the trauma splint in place until follow-up in the office in 2 weeks. Showering: Do not shower with the trauma splint in place. Things To Watch For: 1. Drainage from the incision site that occurs more than one week after your surgery. 2. Increased redness at the incision site. 3. Fever above 102 degrees Fahrenheit. 4. Unusual chest pain or shortness of breath. 5. Call [facility] at with any of the above problems Follow-Up Visit: Follow-up with Dr. Muniz's PA (Magnus Cantu) on March 01 for wound check. He will change her splint and answer any questions. If you have any additional questions or concerns, Dr Muniz is usually in the office at the same time and will be available Please call the office to set up an appointment for a time that works for you. Pending Studies at Discharge: No Stand-Alone Forms: My [facility] Medications and DC Order Prescriptions: New cefadroxil 500 mg capsule 500 mg PO Q12H Qty: 28 0RF Continued levothyroxine 100 mcg tablet 100 mcg PO DAILY fexofenadine 180 mg tablet 90 mg PO DAILY PRN (Reason: Congestion) esomeprazole magnesium [Nexium] 20 mg capsule,delayed release(DR/EC) 20 mg PO DAILY nitroglycerin 0.4 mg tablet, sublingual 0.4 mg SL Q5M PRN (Reason: chest pain) hydrochlorothiazide 12.5 mg capsule 12.5 mg PO DAILY acetaminophen [Tylenol Extra Strength] 500 mg Tablet 1,000 mg PO Q8H PRN (Reason: pain) Qty: 30 0RF Probiotic 3 billion cell capsule 3,000 mmu cells PO DAILY Qty: 21 0RF Rx Instructions: administer with a meal ondansetron HCl [Zofran] 4 mg Tablet 4 mg PO Q6H PRN (Reason: Nausea) sennosides-docusate sodium [Senna-S] 8.6-50 mg Tablet 1 tab-cap PO BID sertraline 25 mg Tablet 25 mg PO DAILY warfarin 2 mg Tablet 2 mg PO UD tramadol 50 mg tablet 50 mg PO Q6H PRN (Reason: pain) Qty: 30 0RF Discharge Orders: Discharge Order (Routine); Ordered 02/24/23 Ordered By: Magnus Muniz Admission Data Admit Date/Time: 02/23/23 15:11 Attending Provider: Mangus Muniz Admit Provider: Magnus Muniz Primary Care Provider: Sobia Gray
[2023-02-24] MEDS ORDERED: LEVOTHYROXINE SODIUM 100 MCG TABLET PO SCH (06:30)
[2023-02-24] MEDS ORDERED: dexAMETHasone 4 MG TAB PO SCH (08:00)
[2023-02-24] MEDS: DOCUSATE SODIUM 100 MG CAP PO SCH (08:26)
[2023-02-24 08:33] LABS: INR 1.3 (0.9-1.1); Prothrombin Time 13.8 Seconds (9.0-12.0)
[2023-02-24] MEDS ORDERED: MULTIVITAMIN TAB PO SCH (09:00)
[2023-02-24] MEDS ORDERED: SERTRALINE HCL 50 MG TABLET PO SCH (09:00)
[2023-02-24] MEDS ORDERED: hydroCHLOROthiazide 25 MG TAB PO SCH (09:00)
[2023-02-24] MEDS ORDERED: PANTOprazole 40 MG TAB PO SCH (09:00)
== END 2023-02-24 11:58 | DRG 494 ==
LOC: ASU 09:56 → 3E 15:11